=== PATIENT | female | born 1995 | race Caucasian/White ===

== ENCOUNTER 2022-01-17 12:19 | Outpatient (CLI) | payer OTHER, SELFPAY ==
--- NOTE | 2022-01-17 13:00 | CRLHL7_ITS ---
For Patients: As a result of the Cures Act, medical imaging exams and procedure reports are released immediately into your electronic medical record. You may view this report before your referring provider. If you have questions, please contact your health care provider. INDICATION: First trimester scan, establish dates. COMPARISON: None. TECHNIQUE: Real-time singletary-scale imaging of the pelvis was performed. FINDINGS: Sonographic imaging demonstrates a single living intrauterine gestation. The embryo demonstrates a regular cardiac rate measuring 163 beats per minute. The embryo`s crown-rump length measurement of 2.0 cm corresponds to a gestational age of 8 weeks 4 days with a sonographic due date of August 25, 2022. There is a normal-appearing yolk sac measuring 3.4 mm. There are no gross abnormalities noted within the embryo at this early state of development. The placenta has not yet developed. The gestational sac has a normal appearance and there is no evidence of a perigestational hemorrhage. The amount of fluid within the sac appears appropriate for gestational age. The cervix is closed. The myometrium appears normal. The ovaries are of normal size. The right ovary measures 3.9 x 3.2 x 2.5 cm and contains small corpus luteum cyst of . The left ovary measures 2.4 x 2.0 x 2.0 cm. There are no suspicious fluid collections noted in the cul-de-sac. IMPRESSION: Normal first trimester OB ultrasound exam. Gestational age calculated at 8 weeks 4 days with a sonographic due date of August 25, 2022. Dictated by Constantin Scott MD @ 01/17/2022 9:10:03 PM (Electronically Signed)
== END 2022-01-17 12:20 | disposition home or self-care (01) ==
LOC: US 12:21
PROVIDERS: PCP Family Medicine; Visit Provider Physician Assistant
DX: Z34.91 Encounter for supervision of normal pregnancy, unspecified, first trimester (principal); Z3A.08 8 weeks gestation of pregnancy
CPT/HCPCS: 76817

== ENCOUNTER 2022-01-17 14:23 | Outpatient (CLI) | payer OTHER, SELFPAY ==
--- OUTSIDE RECORDS SUMMARY | 2022-01-17 14:33 | XMS_ITS | Clinical Summary ---
:1995 Author Organization [employer] [facility] [place] [address] Care Team Providers Name Role Phone Verónica Pita GUILLERMINA Primary Care Provider Allergies Active Allergy Reactions Severity Noted Date Comments Pimgaecahk-Bexzqqmnhednw-Lgt Other - Describe In 07/30 Jaw locked up f Comment Field Human Papillomavirus Rash 06/13/2008 Vaccine, Quadrivalent Sumatriptan Succinate Other - Describe In 07/30/2016 Inefective Comment Field Medications Medication Sig Dispensed Refills Start Date End Date Status methocarbamol (ROBAXIN) Take 1 tablet by 30 tablet 1 9 Active 750 mg mouth every 6 tabletIndications: hours if needed Tension headache for Muscle Spasm. traMADol (ULTRAM) 50 mg Take 1 tablet by 30 tablet 0 9 Active tabletIndications: mouth every 6 Tension headache hours if needed for Pain. norgestimate-ethinyl Take 1 tablet by 28 tablet 0 10/19/2019 Active estradioL (TRINESSA) mouth once 0.18/0.215/0.25 mg-35 daily. 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 Overview: 05/2017 LSIL Age 21 05/2018- LSIL, HPV + plan: repeat Pap in 1 year Migraine without aura and without status migrainosus, not intractable 02/16/2017 Tension headache 02/16/2017 Myopia 05/18/2012 Acne 09/19/2009 Menorrhagia 09/19/2009 Resolved Problems Problem Noted Date Resolved Date Hypertrophy of tonsils and adenoids 09/22/201202/07 Immunizations Name Administration Dates Next Due AMB Influenza, IIV3 (Age >=3 12/05/2011, 12/20/2010, 010, years)(Flu Clinic Only) 01/03/2009, 12/28/2007 AMB Influenza, IIV4 PF (=>6 mos 12/07/2016, 01/04/2016, 11/08 Flulaval,Fluzone Fluarix)(Flu Clinic Only) DTaP 08/05/2000, 02/01/1997, 02/09/1996, 1995, 1995 HIB PRP-OMP (PedvaxHIB) 11/09/1996, 02/09/1996, 1995, 1995 Hepatitis B, Unspecified 05/03/1996, 1995, 1995 Human Papilloma Virus Vaccine 09/03/2007 Inactivated Polio Vaccine 08/05/2000 Influenza A (H1N1), Inactivated (Age 1202/28/2009 >=3 Years) Influenza, IIV3 (Age >=3 years) 12/16/2017, 12/23/2012, 12/09 Influenza, IIV4 12/13/2014 MMR 08/05/2000, 11/09/1996 Meningococcal Vaccine (Menactra) 11/03/2007 Meningococcal Vaccine (Menveo) 10/14/2013 Oral Polio Vaccine 02/09/1996, 1995, 1995 Tdap 06/01/2018, 09/03/2007 Tuberculin (PPD) 03/13/2018, 12/30/2016, 10/25/2016, 04/08/2014, 02/16/2014 Varicella Vaccine 09/03/2007, 08/03/1996 Family History Medical History Relation Name Comments Asthma Brother Heart Disease Maternal Grandfather Migraines Mother Barbara Good Health Sister Relation Name Status Comments Brother Maternal Grandfather Mother Barbara Alive Sister Social History Tobacco Use Types Packs/Day Years Used Date Never Smoker Smokeless Tobacco: Never Used Tobacco Cessation: Counseling Given: Yes Alcohol Use Standard Drinks/Week Comments Yes 0 (1 standard drink = 0.6 oz pure alcoho l) very rare Alcohol Habits Answer Date Recorded How often do you have a drink containing alcohol? Not asked How many drinks containing alcohol do you have on a typical Not asked day when you are drinking? How often do you have six or more drinks on one occasion? No t asked Comment: very rare 02/10/2017 Sex Assigned at Date Recorded Not on file Obstetrics History Last Filed Vital Signs Vital Sign Reading Time Taken Comments Blood Pressure 124/78 06/01/2018 1:34 PM CDT Pulse 68 06/01/2018 1:34 PM CDT Temperature 36.8 ??C (98.2 ??F) 10/27/2017 3:53 PM CDT Respiratory Rate 12 06/01/2018 1:34 PM CDT Oxygen Saturation 100% 10/27/2017 3:53 PM CDT Inhaled Oxygen Concentration - - Weight 73.2 kg (161 lb 6.4 oz) 06/01/2018 1:34 PM CDT Height 160.7 cm (5' 3.25) 06/01/2018 1:34 PM CDT Body Mass Index 28.37 06/01/2018 1:34 PM CDT Plan of Treatment Health Maintenance Due Date Last Done Comments COVID-19 vaccine series (#1) 02/19/1996 Hepatitis C screening for age 0608/19/2013 18-79 BMI (ht and wt on same day) for 06/02/2019 06/01/2018, 1206/2016, age 18+ 07/30/2016, Additional history exists Depression screening for age 12+ 06/04/2019 06/03/2018, , 06/01/2018, Additional history exists Pap test for age 21-65 06/01/2021 06/01/2018, 06/01/2018, 05/08/2017 Influenza for age 9-49 11/08/2021 12/16/2017, 12/07/2016, 01/04/2016, Additional history exists Tetanus booster 06/01/2028 06/01/2018, 09/03/2007 Tdap Completed 06/01/2018, 09/03/2007 Results Not on filefrom Last 3 Months Insurance Payer Benefit Plan / Subscriber ID Effective Dates Phone Addre ss Type Group [employer] [place] [id number] 2017-Present [address] [employer] [phone] [id number] ([address]) [place] [id number] 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
[2022-01-17 17:14] LABS: Hepatitis B Surface Antigen* Negative (Negative)
[2022-01-17 17:25] LABS: HIV 1/2/P24 Combo Screen* Negative (Negative)
[2022-01-17 17:31] LABS: Hepatitis C Virus Antibody* Negative (Negative)
[2022-01-17 17:52] LABS: Chlamydia DNA Amplified* NOT DETECTED (No Detected); GC DNA Amplified* NOT DETECTED (No Detected)
[2022-01-20 04:26] LABS: Rapid Plasma Reagin (RPR) Non Reactive (Non Reactive)
[2022-01-20 14:11] LABS: Rubella Antibody IgG 15.3 IU/mL; Varicella-Zoster Virus Ab, IgG 35.9 IV
== END 2022-01-17 14:24 | disposition home or self-care (01) ==
PROVIDERS: PCP Family Medicine; Visit Provider Physician Assistant
DX: Z34.91 Encounter for supervision of normal pregnancy, unspecified, first trimester (principal); Z12.4 Encounter for screening for malignant neoplasm of cervix; Z3A.08 8 weeks gestation of pregnancy
CPT/HCPCS: 86592; 86703; 86762; 86787; 86803; 86850; 86900; 86901; 87086; 87340; 87491; 87591; 87624; 88175

== ENCOUNTER 2022-04-17 12:23 | Outpatient (CLI) | payer OTHER, SELFPAY | END 2022-04-17 12:24 | disposition home or self-care (01) | PROVIDERS: PCP Family Medicine; Visit Provider Pediatrics Neonatal-Perinatal Medicine | DX: Z34.92 Encounter for supervision of normal pregnancy, unspecified, second trimester (principal); Z3A.21 21 weeks gestation of pregnancy; Z82.79 Family history of other congenital malformations, deformations and chromosomal abnormalities | CPT/HCPCS: 76811 ==

== ENCOUNTER 2022-06-03 10:00 | Outpatient (CLI) | payer OTHER, SELFPAY | END 2022-06-03 10:01 | disposition home or self-care (01) | LOC: NFLDREF 06-05 02:37 | PROVIDERS: PCP Family Medicine; Referring Provider Family Medicine; Visit Provider Obstetrics & Gynecology | DX: Z34.92 Encounter for supervision of normal pregnancy, unspecified, second trimester (principal); Z3A.27 27 weeks gestation of pregnancy | CPT/HCPCS: 86592 ==

== ENCOUNTER 2022-06-17 13:56 | Outpatient (CLI) | payer OTHER, SELFPAY | END 2022-06-17 13:57 | disposition home or self-care (01) | PROVIDERS: PCP Family Medicine; Visit Provider Obstetrics & Gynecology | DX: O13.3 Gestational [pregnancy-induced] hypertension without significant proteinuria, third trimester (principal); Z3A.29 29 weeks gestation of pregnancy | CPT/HCPCS: 82565; 82570; 84156; 84450; 84460; 84520 ==

== ENCOUNTER 2022-06-19 15:33 | Outpatient (CLI) | payer OTHER, SELFPAY | END 2022-06-19 15:34 | disposition home or self-care (01) | LOC: NFLDREF 06-21 12:11 | PROVIDERS: PCP Family Medicine; Referring Provider Family Medicine; Visit Provider Obstetrics & Gynecology | DX: O13.9 Gestational [pregnancy-induced] hypertension without significant proteinuria, unspecified trimester (principal) | CPT/HCPCS: 82570; 84156 ==

== ENCOUNTER 2022-06-28 08:55 | Outpatient (CLI) | payer OTHER, SELFPAY | END 2022-06-28 08:56 | disposition home or self-care (01) | PROVIDERS: PCP Family Medicine; Visit Provider Obstetrics & Gynecology | DX: O13.3 Gestational [pregnancy-induced] hypertension without significant proteinuria, third trimester (principal); Z3A.31 31 weeks gestation of pregnancy | CPT/HCPCS: 82565; 82570; 84156; 84450; 84460; 84520 ==

== ENCOUNTER 2022-07-02 08:21 | Outpatient (CLI) | payer OTHER, SELFPAY ==
--- NOTE | 2022-07-02 08:45 | CRLHL7_ITS ---
For Patients: As a result of the Century Cures Act, medical imaging exams and procedure reports are released immediately into your electronic medical record. You may view this report before your referring provider. If you have questions, please contact your health care provider. INDICATION: female. Gestational hypertension. Evaluate well-being. TECHNIQUE: Transabdominal obstetrical ultrasound. FINDINGS: Single living intrauterine in vertex presentation. Posterior placenta. heart rate 141 beats per minute. Normal amniotic fluid. Single deepest pocket measurement 4.7 cm. Biophysical profile score 6/8 with 2 points given each for gross body movements, tone, and amniotic fluid. Respiratory activity was not observed during the timed course of the study. Biparietal Diameter: 7.91 cm, 35 weeks 5 days, 37th percentile. Head Circumference: 29.22 cm, 32 weeks 2 days, 22nd percentile. Abdominal Circumference: 27.36 cm, 31 weeks 3 days, 35th percentile. Femur Length: 6 cm, 31 weeks 3 days, 24th percentile. Composite calculated ultrasound age 31 weeks 5 days with a sonographic due date of 08/29/2022. Estimated weight 1783g which lies at the 28th percentile. The head to abdominal circumference ratio is normal at 1.07 (0.96-1.15). IMPRESSION: 1. Single living intrauterine in vertex presentation. heart rate 141 beats per minute. 2. Biophysical profile score 6/8. 3. Composite calculated ultrasound age 31 weeks 5 days with a sonographic due date of 08/29/2022. Dictated by Constantin Scott MD @ 07/02/2022 12:03:46 PM (Electronically Signed)
== END 2022-07-02 08:22 | disposition home or self-care (01) ==
PROVIDERS: PCP Family Medicine; Visit Provider Obstetrics & Gynecology
DX: O13.3 Gestational [pregnancy-induced] hypertension without significant proteinuria, third trimester (principal)
CPT/HCPCS: 76816; 76819

== ENCOUNTER 2022-07-05 08:36 | Outpatient (CLI) | payer OTHER, SELFPAY | END 2022-07-05 08:37 | disposition home or self-care (01) | LOC: NFLDREF 22:03 | PROVIDERS: PCP Family Medicine; Referring Provider Family Medicine; Visit Provider Obstetrics & Gynecology | DX: O13.3 Gestational [pregnancy-induced] hypertension without significant proteinuria, third trimester (principal); Z3A.32 32 weeks gestation of pregnancy | CPT/HCPCS: 82565; 82570; 84156; 84450; 84460; 84520 ==

== ENCOUNTER 2022-07-05 09:59 | Outpatient (CLI) | payer OTHER, SELFPAY ==
[2022-07-05 10:18] VITALS: BP 133/87; PULSE 73; RESP 16; TEMP 36.8
[2022-07-05 10:25] VITALS: PULSE 83; O2SAT 97
[2022-07-05 10:50] LABS: Appearance Urine Clear (Clear); Bilirubin Urine Negative (Negative); Blood Urine Negative (Negative); Color Urine Yellow (Yellow); Glucose Urine Negative (Negative); Ketones Urine Negative (Negative); Leukocyte Esterase Urine Negative (Negative); Nitrite Urine Negative (Negative); Protein Urine Negative (Negative); Urobilinogen Urine 0.2 (0.2-1.0)
[2022-07-05 10:57] LABS: Clue Cells No Clue Cells Seen (None Seen); Trichomonas No Trichomonas Seen (None Seen); Yeast No Yeast Seen (None Seen)
[2022-07-05 11:16] LABS: Fetal Fibronectin* Negative (Negative)
--- NOTE | 2022-07-05 11:41 | CRLHL7_ITS ---
For Patients: As a result of the Cures Act, medical imaging exams and procedure reports are released immediately into your electronic medical record. You may view this report before your referring provider. If you have questions, please contact your health care provider. Indication: History of labor Technique: Sonography was performed limited only that which is discussed below Comparison: No prior study specifically studding the cervix Findings: Cervical length is measured at 3.4 to 3.6 centimeters. There is no change of the length with or without fundal pressure. The os is closed and there is no funneling. Impression: Cervical measurements as above Dictated by Luis E Williamson MD @ 07/05/2022 12:56:39 PM (Electronically Signed)
--- NOTE | 2022-07-05 13:09 | PC.OBNST ---
NST Note NST Note Start: 07/05/22 10:14 Freq: ONCE Status: Active Protocol: Document 07/05/22 13:07 NOELLE (Rec: 07/05/22 13:09 NOELLE [id number]) NST Note 1 Para (# of births) 0 EDC 08/28/22 Gestational Age In Weeks & Days 32 Weeks & 2 Days High Risk Factors High Blood Pressure - Gestational Patient Presented with Complaint(s) of Contractions/cramping Other Complaints Pt. sent to OB from [facility] with concerns that pt. was having frequent UC activity on EFM/ NST. Sent for more observation. UA clear, wet prep clear, FFN negative, and Transvaginal US 3cm long in length and closed. Reactive Yes Appropriate for Gestational Age Yes NANCY Gaines Date 07/05/22 Reactive Yes Appropriate for Gestational Age Yes NANCY Severino RN Date 07/05/22 OB NST charge Yes Complete NST Note via Write Note Yes The provider's electronic signature indicates the NST is reactive/appropriate for gestational age. *Note to provider: If an addendum is required, open the patient's chart and click on the note under the Nurse/Allied Health tab.
== END 2022-07-05 12:55 | disposition home or self-care (01) ==
LOC: OB OUT 10:00 → OB 10:01
PROVIDERS: Obstetrics & Gynecology; PCP Family Medicine; Visit Provider Obstetrics & Gynecology
DX: O13.3 Gestational [pregnancy-induced] hypertension without significant proteinuria, third trimester (principal); Z34.93 Encounter for supervision of normal pregnancy, unspecified, third trimester; Z3A.32 32 weeks gestation of pregnancy
CPT/HCPCS: 59025; 76817; 81003; 84112; 87210; 99213

== ENCOUNTER 2022-07-09 13:39 | Outpatient (CLI) | payer OTHER, SELFPAY ==
--- NOTE | 2022-07-09 14:00 | CRLHL7_ITS ---
For Patients: As a result of the Century Cures Act, medical imaging exams and procedure reports are released immediately into your electronic medical record. You may view this report before your referring provider. If you have questions, please contact your health care provider. INDICATION: Gestational HTN COMPARISON: 07/05/2022 TECHNIQUE: Real time singletary scale imaging of the fetus was performed. Without non-stress testing. FINDINGS: Sonographic imaging demonstrates a single living intrauterine gestation. Fetus demonstrates a regular cardiac rate of 144 beats per minute. Fetus has a vertex position. The amniotic fluid volume appears normal and there is a single deepest pocket measurement of 5.9 cm. The fetus was active. Absent breathing movements. There was normal flexion and extension of the trunk and extremities. IMPRESSION: Biophysical profile 08/15. Dictated by Sagar Ramirez MD @ 07/09/2022 3:50:44 PM (Electronically Signed)
== END 2022-07-09 13:40 | disposition home or self-care (01) ==
LOC: US 13:40
PROVIDERS: PCP Family Medicine; Visit Provider Obstetrics & Gynecology
DX: O13.9 Gestational [pregnancy-induced] hypertension without significant proteinuria, unspecified trimester (principal)
CPT/HCPCS: 76819

== ENCOUNTER 2022-07-12 10:00 | Outpatient (CLI) | payer OTHER, SELFPAY | END 2022-07-12 10:01 | disposition home or self-care (01) | LOC: NFLDREF 07-15 16:15 | PROVIDERS: PCP Family Medicine; Referring Provider Family Medicine; Visit Provider Obstetrics & Gynecology | DX: O13.3 Gestational [pregnancy-induced] hypertension without significant proteinuria, third trimester (principal); Z3A.33 33 weeks gestation of pregnancy | CPT/HCPCS: 82565; 82570; 84156; 84450; 84460; 84520 ==

== ENCOUNTER 2022-11-17 18:01 | Emergency (ER) | payer OTHER, SELFPAY ==
[2022-11-17 18:13] VITALS: BP 113/76; PULSE 82; RESP 16; TEMP 36.6; O2SAT 99; BMI 31.8
--- NOTE | 2022-11-17 18:17 | CRLHL7_ITS ---
For Patients: As a result of the Century Cures Act, medical imaging exams and procedure reports are released immediately into your electronic medical record. You may view this report before your referring provider. If you have questions, please contact your health care provider. Indication: Trauma. Technique: Right foot, 3 views. Comparison: None. Findings/Impression: Bones: Acute mildly displaced fracture of the 5th metatarsal base. Joint spaces: Unremarkable. Soft tissues: Unremarkable. Dictated by Kody Brown MD @ 11/17/2022 7:27:13 PM (Electronically Signed)
--- NOTE | 2022-11-17 18:21 | ED_ITS ---
HPI - Extremity Injury (Lower) General Time Seen by Provider: 18:21 Date Seen: 11/17/22 Chief Complaint: Extremity Pain/Injury, Lower Stated Complaint: R foot injury-fell Time Seen by Provider: 11/17/22 18:17 Source: patient and RN notes reviewed Mode of arrival: ambulatory Limitations: no limitations History of Present Illness HPI Narrative: This 27-year-old female is having pain along her right lateral foot. She was caring her walking. Somehow stepped wrong, felt a pop in her foot. She has swelling and bruising, last took ibuprofen around 11:00 a.m. this morning. There is swelling and bruising, it hurts to walk on. She can walk if she just walks on her heel. 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 MD complaint: foot injury Related Data Previous Rx's Medication Instructions Recorded ibuprofen 600 mg tablet 600 mg PO Q6H PRN #30 tabs 08/06/22 Allergies Allergy/AdvReac Type Severity Reaction Status Date / Time human papillomavirus Allergy Severe Arm Went Verified 08/20/22 17:33 vaccine, quadr Black sumatriptan [From Imitrex] Allergy Intermediate Verified 08/20/22 17:33 Review of Systems Narrative: As per HPI. PFSH PFS Medical History Pre-eclampsia affecting puerperium ?O14.95 - Unspecified pre-eclampsia, complicating the puerperium (ICD-10) (normal spontaneous vaginal delivery) ?O80 - Encounter for full-term uncomplicated delivery (ICD-10) Gestational hypertension ?O13.9 - Gestational [-induced] hypertension without significant proteinuria, unspecified trimester (ICD-10) Migraine with aura ?G43.109 - Migraine with aura, not intractable, without status migrainosus (ICD-10) History of menorrhagia ?Z87.42 - Personal history of other diseases of the female genital tract (ICD-10) History of abnormal cervical Papanicolaou smear (05/08/17) ?Z87.42 - Personal history of other diseases of the female genital tract (ICD-10) Surgical History History of wisdom tooth extraction ?K08.409 - Partial loss of teeth, unspecified cause, unspecified class (ICD- 10) History of tonsillectomy (10/08/12) ?Z90.89 - Acquired absence of other organs (ICD-10) Family History Family/Other Coronary artery disease Family/Other Prostate cancer Social History 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 . Nonsmoker. Smoking Status: Never smoker How often do you have a drink containing alcohol: 2-4 times a month How many standard drinks containing alcohol do you have on a typical day: 1 or 2 AUDIT-C Alcohol total score: 2 Non-prescribed substance use: denies use Little interest or pleasure in doing things: not at all Feeling down, depressed, or hopeless: not at all Exam Const: Vital Signs, click to edit/add: Vital Signs - 24 hr 11/17/22 18:13 Temperature 97.8 F Pulse Rate [Left P ulse Oximeter] 82 Respiratory Rate 16 Blood Pressure [Ri ght Upper Arm] 113/76 Pulse Oximetry 99 Oxygen Delivery Me thod Room Air Odalys is a very danie 27-year-old female. She has obvious bruising and swelling over the lateral to mid foot. She is point tender over the proximal 5th metatarsal. There is no swelling into the ankle joint, malleoli are nontend er. She has a good dorsalis pedis pulse. Normal cap refill of the toes and normal sensation. Documenting provider has reviewed patient's vital signs: yes Course Course ED Course: There is obviously concern for fracture of her 5th metatarsal. We will obtain x-ray images. I have reviewed with her that even if the x-ray images do not show a definitive fracture, I a.m. going to recommend immobilization with a cam boot in orthopedic follow-up. The mechanism in her current area of bruising and tenderness certainly make me concerned for underlying fracture. Reevaluation(s) Time of Reevaluation #1: 19:36 Reevaluation #1: Patient has seen her images, is aware that there is fracture at the base of the right 5th metatarsal. Reviewed with her my discussion with Orthopedics. She has a cam walker on already, crutches are in the room. I have given a script for a knee scooter. Consultations Consultation #1: Have spoken with Janis in Orthopedics. She has reviewed the images. She recommends nonweightbearing, can give her script for a knee scooter, crutches in the meantime. She should be able to work as long as she can maintain nonweightbearing on this side and until further advised by Orthopedics. Time: 19:03 Vital Signs Vital signs: Initial Vital Signs Temperature 97.8 F 11/17/22 18:13 Temperature Source Temporal Artery Scan 11/17/22 18:13 Pulse Rate 82 11/17/22 18:13 Pulse Rhythm Regular 11/17/22 18:13 Respiratory Rate 16 11/17/22 18:13 Blood Pressure 113/76 11/17/22 18:13 Blood Pressure Mean 88 11/17/22 18:13 Blood Pressure Position Sitting 11/17/22 18:13 Pulse Oximetry 99 11/17/22 18:13 Oxygen Delivery Method Room Air 11/17/22 18:13 Vital Signs Temperature 97.8 F 11/17/22 18:13 Pulse Rate 82 11/17/22 18:13 Respiratory Rate 16 11/17/22 18:13 Blood Pressure 113/76 11/17/22 18:13 Pulse Oximetry 99 11/17/22 18:13 Oxygen Delivery Method Room Air 11/17/22 18:13 Temperature 97.8 F 11/17/22 18:13 Pulse Rate 82 11/17/22 18:13 Respiratory Rate 16 11/17/22 18:13 Blood Pressure 113/76 11/17/22 18:13 Pulse Oximetry 99 11/17/22 18:13 Oxygen Delivery Method Room Air 11/17/22 18:13 MDM - Extremity Injury (Lower) Imaging Data XR right foot: Attestation: I have reviewed the pertinent imaging results. My impression: I see an acute proximal 5th metatarsal fracture, no significant displacement that I can see in my preliminary review. Radiologist's impression: Patient: ODALYS BARROSO Facility:[facility] Patient ID:?[id number] Site Patient ID:?[id number]. Site :?[id number] Study:?XRay Extremity Right FOOT 3V-11/17/2022 6:40:59 PM Ordering Physician:Connor Collado Final Report: Indication: Trauma. Technique: Right foot, 3 views. Comparison: None. Findings/Impression: Bones: Acute mildly displaced fracture of the 5th metatarsal base. Joint spaces: Unremarkable. Soft tissues: Unremarkable. Dictated by Kody Brown MD @ 11/17/2022 7:27:13 PM (Electronic Signature) Discharge Plan Discharge Clinical Impression: Fracture of fifth metatarsal bone of right foot Qualifiers: Encounter type: initial encounter Fracture type: closed Patient Disposition: Home, Self-Care Condition: Stable Instructions: Foot Fracture in Adults (ED) Additional Instructions: Need to use cam boot for immobilization, crutches or knee scooter for nonweightbearing until further advised by Orthopedics. Ice, elevate to decrease pain and swelling. Can use Tylenol and ibuprofen per bottle directions as needed for pain management. Need to follow up with Orthopedics, if you do not hear from them tomorrow, call [phone] to get scheduled. Activity Level: No Weight Bearing Prescriptions: No Action ibuprofen 600 mg Tablet 600 mg PO Q6H PRNQty: 30 0RF Follow Up/Referrals: Sagar Ruelas MD [Primary Care Provider] - Stand Alone [facility] Inst[facility]
[2022-11-17 19:49] VITALS: BP 121/70; PULSE 79; RESP 16; TEMP 36.6; O2SAT 99
== END 2022-11-17 19:43 | disposition home or self-care (01) ==
PROVIDERS: Emergency Provider Family Medicine; PCP Family Medicine
DX: S92.351A Displaced fracture of fifth metatarsal bone, right foot, initial encounter for closed fracture (principal); Y93.01 Activity, walking, marching and hiking
CPT/HCPCS: 29505; 73630; 99283

== ENCOUNTER 2024-01-07 11:11 | Outpatient (CLI) | payer OTHER, SELFPAY ==
--- OUTSIDE RECORDS SUMMARY | 2024-01-07 15:24 | XMS_ITS | Clinical Summary ---
Author Organization [employer] [facility] Address [place], [place] [address] Care Team Providers Care Photolithographic Stripper Name Role Phone Pita Sanches NP Primary Care Provider Allergies Active Allergy Reactions Criticality Noted Date Comments Ugkepwwuxc-Ikhqwwjptnhdb-T aff Other - Describe In Comment Field 07/30/2016 Jaw locked up Human Papillomavirus Vaccine, Quadrivalent Rash 06/13/2008 Sumatriptan Succinate Other - Describe I n Comment Field 07/30/2016 Inefective Medications Medication Sig Dispensed Refills Start Date End Date Status methocarbamol (ROBAXIN) 750 mg tabletIndications:[place] headache Take 1 tablet by mouth every 6 hours if needed for Muscle Spasm. 30 tablet 1 06/01/2018 Active traMADol (ULTRAM) 50 mg tabletIndications:[place] headache Take 1 tablet by mouth every 6 hours if needed for Pain. 30 tablet 06/04/2018 Active norgestimate-ethinyl estradioL (TRINESSA) 0.18/0.215/0.25 mg-35 mcg (28) tabletIndications:Men orrhagia with irregular cycle Take 1 tablet by mouth once daily. 28 tablet 10/19/2019 Active Active Problems Problem Noted Date Diagnosed Date Controlled substance agreement signed 06/01/2018 Overview (06/01/2018): Tramadol for headaches #30 per year Low grade squamous intraepit helial lesion (LGSIL) on Papanicolaou smear of cervix 05/08/2017 Overview (06/09/2018): 05/2017 LSIL Age 21 05/2018- LSIL, HPV + plan: repeat Pap in 1 year Migraine without aura and wi thout status migrainosus, not intractable 02/16/2017 Tension headache 02/16/2017 Myopia 05/18/2012 Acne 09/19/2009 Menorrhagia 09/19/2009 Resolved Problems Problem Noted Date Diagnosed Date Resolved Date Hypertrophy of tonsils and adenoids 09/22/2012 02/16/2017 Immunizations Name Administration Dates Next Due AMB Influenza, IIV3 (Age >=3 years)(Flu Clinic Only) 12/05/2011,12/20/2010,12/25/2009,01/03,12/28/2007 AMB Influenza, IIV4 PF (=>6 mos Flulaval,Fluzone Fluarix)(Flu Clinic Only) 12/07/2016,01/04/2016,11/22/2013 DTaP 08/05/2000, 7,02/09/1996,12/14,1995 HIB PRP-OMP (PedvaxHIB) 11/09/1996,02/08,1995,10/14 Hepatitis B, Unspecified 05/03/1996,1995,0 1995 Human Papilloma Virus Vaccine 09/03/2007 Inactivated Polio Vaccine 08/05/2000 Influenza A (H1N1), Inactiva yesica (Age >=3 Years) 02/28/2009 Influenza, IIV3 (Age >=3 years) 12/16/2017,12/23,12/29/2006 Influenza, IIV4 12/13/2014 MENINGOCOCCAL VACCINE 2 VIAL 2MO-55YO (MENVEO) 10/14/2013 MMR 08/05/2000,11/09/1996 Meningococcal Vaccine (Menactra) 11/03/2007 Oral Polio Vaccine 02/09/1996,1995, 996 Tdap 06/01/2018,09/03/2007 Tuberculin (PPD) 03/13/2018, 7,10/25/2016,04/08,02/16/2014 Varicella Vaccine 09/03/2007,08/03/1996 Family History Medical History Relation Name Comments Asthma Brother Heart Disease Maternal Grandfather Migraines Mother Barbara Good Health Sister Relation Name Status Comments Brother Maternal Grandfather Mother Barbara Alive Sister Social History Tobacco Use Types Packs/Day Years Used Date Smoking Tobacco: Never Smokeless Tobacco: Never Tobacco Cessation:Counseling Given: Yes Alcohol Use Standard Drinks/Week Comments Yes 0 (1 standard drink = 0.6 oz pur e alcohol) very rare PHQ-2 Answer Date Recorded PHQ-2 Score 0 06/01/2018 Sex and Gender Information Value Date Recorded Sex Assigned at Not on file Gender Identity Not on file Sexual Orientation Not on file Obstetrics History Last Filed Vital Signs Vital Sign Reading Time Taken Comments Blood Pressure 124/78 06/01/2018 1:34 PM CDT Pulse 68 06/01/2018 1:34 PM CDT Temperature 36.8 ??C (98.2 ??F) 10/27/2017 3:53 PM CD T Respiratory Rate 12 06/01/2018 1:34 PM CDT Oxygen Saturation 100% 10/27/2017 3:53 PM CDT Inhaled Oxygen Concentration - - Weight 73.2 kg (161 lb 6.4 oz) 06/01/2018 1:34 P M CDT Height 160.7 cm (5' 3.25) 06/01/2018 1:34 PM CD T Body Mass Index 28.37 06/01/2018 1:34 PM CDT Plan of Treatment Health Maintenance Due Date Last Done Comments HIV for age 15-65 08/19/2010 Hepatitis C screening for age 18-79 08/19/2013 BMI (ht and wt on same day) for age 18+ 06/02/2019 06/01/2018, 02/10/2017, 07/30/2016, Additional history exists Depression screening for age 12+ 06/04/2019 06/03/2018, 06/01/2018, 06/01/2018, Additional history exists COVID-19 vaccine series (2023- season) 2023 Influenza for age 9-49 11/09/2023 8, 12/07/2016, 01/04/2016, Additional history exists Pap test for age 21-65 01/17/2025 2, 01/17/2022, 06/01/2018, Additional history exists Tetanus booster 06/01/2028 06/01/2018, 09/03/2007 Tdap Completed 06/01/2018, 09/03/2007 Pneumococcal series for age 6-64 Aged Out No longer eligible based on patient's age to complete this topic Procedures Procedure Name Priority Date/Time Associated Diagnosis Comments HPV HIGH RISK Routine 01/17/2022 2:58 PM [employer] from Last 3 Months or Most Recently Relevant to Health Maintenance Results * HPV HIGH RISK (01/17/2022 2:58 PM [employer]) TYPE 16 Negative Negative 01/22/2022 5:09 PM [employer] [facility] TYPE 18 Negative Negative 01/22/2022 5:09 PM [employer] [facility] OTHER HIGH RISK TYPES Negative Negative 01/22/2022 5:09 PM [employer] [facility] Other (Cervical/Vagina l) 01/17/2022 2:58 PM [employer] 01/21/2022 1:42 PM [employer] Narrative [facility] - 01/22/2022 5:09 PM [employer] HPV types 16, 18, 31, 33, 35, 39, 45, 51, 52, 56, 58, 59, 66 and 68 DNA were undetectable or below the pre-set threshold. Methodology: Mario Bubba 4800 HPV Test June Dianna PANDYA [employer] [facility] [address] [place] [address], from Last 3 Months or Most Recently Relevant to Health Maintenance Care Teams Photolithographic Stripper Relationship Specialty Start Date End Date Pita Sanches NP [address] [place] [address] BO MARIE [id number] PCP - General Family Practice 06/01/18
== END 2024-01-07 11:12 | disposition home or self-care (01) ==
PROVIDERS: PCP Family Medicine; Referring Provider Family Medicine; Visit Provider Family Medicine
DX: E66.9 Obesity, unspecified (principal); Z13.228 Encounter for screening for other metabolic disorders
CPT/HCPCS: 80048

== ENCOUNTER 2024-07-19 13:32 | Outpatient (CLI) | payer OTHER, SELFPAY ==
--- NOTE | 2024-07-19 14:00 | CRLHL7_ITS ---
For Patients: As a result of the Cures Act, medical imaging exams and procedure reports are released immediately into your electronic medical record. You may view this report before your referring provider. If you have questions, please contact your health care provider. OB ULTRASOUND INDICATION: Dating and viability. TECHNIQUE: Real time grayscale imaging of the fetus was performed. Transvaginal imaging performed to better visualize the endometrium and ovaries. LMP: 05/22/2024. RODRIGO by LMP: 02/26/2025. GA: 8 w, 2 d. Previous US: No. CRL: 2.1 cm. 8 w 5 d. RODRIGO: 02/23/2025. FHR: 180 BPM. Gestational sac: 3.6 cm. Appears within normal limits. Yolk sac: 3.7 mm. Appears within normal limits. Right ovary: 2.7 x 1.1 x 1.4 cm. Left ovary: 3.8 x 2.6 x 2.0 cm. CL. IMPRESSION: Single living intrauterine measuring 8 weeks 5 days and sonographic due date 02/23/2025. Sagar Ramirez M.D. Diagnostic Radiologist [email or web address] MARTIN/lisset darling/Dictated by: Sagar Ramirez MD @ 07/20/2024 6:09:00 AM (Electronically Signed)
== END 2024-07-19 13:33 | disposition home or self-care (01) ==
LOC: US 13:33
PROVIDERS: PCP Family Medicine; Visit Provider Physician Assistant
DX: Z34.91 Encounter for supervision of normal pregnancy, unspecified, first trimester (principal); Z3A.08 8 weeks gestation of pregnancy
CPT/HCPCS: 76817

== ENCOUNTER 2024-07-19 14:46 | Outpatient (CLI) | payer OTHER, SELFPAY ==
[2024-07-19 22:08] LABS: Chlamydia DNA Amplified* NOT DETECTED (No Detected); GC DNA Amplified* NOT DETECTED (No Detected)
== END 2024-07-19 14:47 | disposition home or self-care (01) ==
PROVIDERS: PCP Family Medicine; Visit Provider Physician Assistant
DX: O09.291 Supervision of pregnancy with other poor reproductive or obstetric history, first trimester (principal); Z3A.08 8 weeks gestation of pregnancy
CPT/HCPCS: 82565; 82570; 83020; 83021; 84156; 84450; 84460; 84520; 85660; 86592; 86703; 86704; 86706; 86762; 86787; 86803; 86850; 87086; 87340; 87491; 87591

== ENCOUNTER 2024-07-28 07:00 | Outpatient (CLI) | payer OTHER, SELFPAY | END 2024-07-28 07:01 | disposition home or self-care (01) | LOC: NFLDREF 08-04 03:27 | PROVIDERS: PCP Family Medicine; Referring Provider Family Medicine; Visit Provider Physician Assistant | DX: Z34.81 Encounter for supervision of other normal pregnancy, first trimester (principal) | CPT/HCPCS: 82570; 84156 ==

== ENCOUNTER 2024-09-15 10:05 | Outpatient (CLI) | payer OTHER, SELFPAY | END 2024-09-15 10:06 | disposition home or self-care (01) | PROVIDERS: PCP Family Medicine; Visit Provider Obstetrics & Gynecology | DX: Z34.92 Encounter for supervision of normal pregnancy, unspecified, second trimester (principal); Z3A.16 16 weeks gestation of pregnancy | CPT/HCPCS: 84450; 86706 ==

== ENCOUNTER 2024-10-27 12:45 | Outpatient (CLI) | payer OTHER, SELFPAY | END 2024-10-27 12:46 | disposition home or self-care (01) | PROVIDERS: PCP Family Medicine; Visit Provider Obstetrics & Gynecology | DX: O26.892 Other specified pregnancy related conditions, second trimester (principal); R51.9 Headache, unspecified; H53.9 Unspecified visual disturbance; Z3A.22 22 weeks gestation of pregnancy | CPT/HCPCS: 82565; 82570; 84156; 84450; 84460; 84520; 84550 ==

== ENCOUNTER 2024-10-27 14:12 | Emergency (ER) | payer OTHER, SELFPAY ==
--- OUTSIDE RECORDS SUMMARY | 2024-10-06 08:52 | XMS_ITS | Encounter Summary ---
Author Organization [employer] Address [address] [place] [id number] Care Team Providers Care Service Counselor Name Role Phone No Ref-Primary, Physician Primary Care Provider Reason for Referral * Diagnostic Imaging Ultrasound (Routine) - Pending Review Specialty Diagnoses / Procedures Referred By Liss jimenez Referred To Contact Radiology. Diagnoses related condition, antepartum Procedures [facility] US Comprehensive Single Ralf Marinelli MD [facility] [address] [place] [address] Phone: tel: fax: Referral ID Status Reason Start Date Expiration Date V isits Requested Visits Authorized [id number] Pending Review 08/23/2024 08/23/2025 1 1 Reason for Visit * Diagnostic Imaging Ultrasound (Routine) - Pending Review Specialty Diagnoses / Procedures Referred By Liss jimenez Referred To Contact Radiology. Diagnoses related condition, antepartum Procedures [facility] US Comprehensive Single Ralf Marinelli MD [facility] [address] [place] [address] Phone: tel: fax: Referral ID Status Reason Start Date Expiration Date V isits Requested Visits Authorized [id number] Pending Review 08/23/2024 08/23/2025 1 1 Encounter Details Date Type Department Care Team (Latest Contact Info) Description 10/06/2024 8:52 AM CDT - 10/06/2024 11:59 PM CDT Hospital Encounter [facility] [place] [address] [place] [address] Melany Portillo MD [address] [place], [place] [address]E [facility] [address] [place] [address] related condition, antepartum Discharge Disposition: Home or Self Care Social History Tobacco Use Types Packs/Day Years Used Date Smoking Tobacco: Never Assessed Estimated Date of Delivery Comme nts Yes 02/26/2025 Based on last me nstrual period of 05/22/2024 Sex and Gender Information Value Date Recorded Sex Assigned at Not on file Legal Sex Female 10:10 AM CDT Gender Identity Not on file Sexual Orientation Not on file documented as of this encounter Plan of Treatment Not on file documented as of this encounter Procedures Procedure Name Priority Date/Time Associated Diagnosis Comments [facility] US COMPREHENSIVE SINGLE Routine 10/06/2024 10:44 AM CDT related condition, antepartum documented in this encounter Results * [facility] US Comprehensive Single (10/06/2024 10:44 AM CDT) Anatomical Region Laterality Modality Ultrasound 10/06/2024 10:0 4 AM CDT Impressions 10/06/2024 10:58 AM CDT IMPRESSION ----- 1. Conn at 19w 4d gestational age by LMP c/w 8 week 5 day US. 2. No anomalies commonly detected by ultrasound were identified in the detailed anatomic survey within the limits of ultrasound. 3. Growth parameters and estimated weight were consistent with gestational age predicted by assigned RODRIGO. 4. The amniotic fluid volume appeared normal. 5. On transabdominal imaging the cervix appeared long and closed. Narrative 10/06/2024 10:58 AM CDT Comprehensive ----- Pat. Name: JOANN MALONEY Study Date: 10/06/2024 10:04am Pat. 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 View: Sufficient ----- Conn . Number of fetuses: 1 DATING ----- Date Details Gest. age RODRIGO LMP 05/22/2024 Cycle: regular cycle 19 w + 4 d 02/26/2025 Previous U/S 07/19/2024 GA, GA 8 w + 5 d 20 w + 0 d 02/23/2025 U/S 10/06/2024 based upon AC, BPD, Femur, HC 19 w + 6 d 02/24/2025 Assigned dating based on the LMP, selected on 10/06/2024 19 w + 4 d 02/26/2025 GENERAL EVALUATION ----- Cardiac activity present. FHR 146 bpm. movements: present. Presentation: cephalic Placenta: posterior, no previa > 2 cm from internal os Umbilical cord: Cord vessels: 3 vessel cord. Insertion site: normal insertion Amniotic fluid: Amount of AF: normal. MVP 5.1 cm BIOMETRY ----- BPD 45.2 mm 19w 5d Hadlock OFD 61.0 mm 19w 5d Nicolaides HC 170.5 mm 19w 5d Hadlock Cerebellum tr 20.0 mm 19w 0d Nicolaides Nuchal fold 4.1 mm AC 149.3 mm 20w 1d 66% Hadlock Femur 31.4 mm 19w 5d Hadlock Humerus 29.9 mm 19w 6d [facility] Weight Calculation: EFW 322 g 66% Hadlock EFW (lb,oz) 0 lb 11 oz EFW by Hadlock ([id number]) Head / Face / Neck Biometry: Director Of [employer] Services 6.5 mm CM 4.5 mm Nasal bone 5.6 mm ANATOMY ----- The following structures appear normal: Head / Neck Cranium. Head size. Head shape. Lateral ventricles. Choroid plexus. Midline falx. Cavum septi pellucidi. Cerebellum. Cisterna magna. Parenchyma. Thalami. Vermis. Neck. Nuchal fold. Face Lips. Profile. Nose. Maxilla. Mandible. Orbits. Lens. Heart / Thorax 4-chamber view. RVOT view. LVOT view. 3-vessel view. 7-ldoxza-msoqdor view. Situs. Aortic arch view. Bicaval view. Ductal arch view. Superior vena cava. Inferior vena cava. Cardiac position. Cardiac size. Cardiac rhythm. Right lung. Left lung. Diaphragm. Abdomen Abdom. wall. Cord insertion. Stomach. Kidneys. Bladder. Liver. Bowel. Genitals. Spine Cervical spine. Thoracic spine. Lumbar spine. Sacral spine. Extremities / Skeleton Arms. Right arm. Right hand. Left arm. Left hand. Legs. Right leg. Right foot. Left leg. Left foot. sex: male. MATERNAL STRUCTURES ----- Cervix Visualized Appearance: Appears Closed Approach - Transabdominal: Cervical length 47.9 mm Right Ovary Visualized Left Ovary Visualized RECOMMENDATION ----- Thank-you for referring your patient for a comprehensive ultrasound. I discussed the findings on today's ultrasound with the patient and her partner, who was born with a cleft lip. I reviewed the limitations of ultrasound both in detecting aneuploidy and structural abnormalities. Ultrasound can routinely detect 80-90% of structural abnormalities. She had low risk cell free DNA for genetic screening this . She plans weekly BPPs for her history of a due to preeclampsia. These are anticipated in [place] and we recommend that these start at 32 weeks. Return to primary provider for continued care. If you have questions regarding today's evaluation or if we can be of further service, please contact the [facility]. anomalies may be present but not detected I spent a total of 20 minutes (excluding the ultrasound interpretation) on the date of this encounter including preparing to see the patient (reviewing medical records/tests), in direct qkis-zh-gcwq contact with the patient counseling and discussing the plan of care, documenting the visit in the electronic medical record, and communicating with other health home health aide caregiver and/or care coordination. Procedure Note Melany Portillo MD - 10/06/2024 Comprehensive ----- Pat. Name: JOANN MALONEY Study Date: 10/06/2024 10:04am Pat. NO: [id number] Referring MD: RALF MARINELLI Site: [employer] Patrol Officer: Erinn Bruno RDMS : 1995 Age: 29 ----- INDICATION ----- Family history of cleft lip (FOB) History of preeclampsia in previous METHOD ----- Transabdominal ultrasound examination. View: Sufficient ----- Conn . Number of fetuses: 1 DATING ----- DateDetailsGest. age RODRIGO LMP 05/22/2024ycle: regular cycle19 w + 4 d 02/26/2025 Previous U/S 07/19/2024 GA, GA8 w + 5 d20 w + 0 d 02/23/2025 U/S 10/06/2024ased upon AC, BPD, Femur, HC19 w + 6 d 02/24/2025 Assigned dating based on the LMP, selected on w + 4 d 02/26/2025 GENERAL EVALUATION ----- Cardiac activity present. FHR 146 bpm. movements: present.Presentation: cephalic Placenta: posterior, no previa > 2 cm from internal os Umbilical cord: Cord vessels: 3 vessel cord. Insertion site: normalinsertion Amniotic fluid: Amount of AF: normal. MVP 5.1 cm BIOMETRY ----- BPD 45.2mm 19w 5dHadlock OFD 61.0mm 19w 5dNicolaides HC 170.5mm 19w 5dHadlock Cerebellum tr 20.0mm 19w 0dNicolaides Nuchal fold 4.1mm AC 149.3mm 20w 1d 66%Hadlock Femur 31.4mm 19w 5dHadlock Humerus 29.9mm 19w 6dJeanty Weight Calculation: EFW 322g 66%Hadlock EFW (lb,oz) 0 lb 11oz EFW by Hadlock([id number]) Head / Face / Neck Biometry: Director Of [employer] Services 6.5mm CM 4.5mm Nasal bone 5.6mm ANATOMY ----- The following structures appear normal: Head / Neck Cranium. Head size. Head shape.Lateral ventricles. Choroid plexus. Midline falx. Cavum septi pellucidi.Cerebellum. Cisterna magna. Parenchyma. Thalami. Vermis. Neck. Nuchal fold. Face Lips. Profile. Nose. Maxilla.Mandible. Orbits. Lens. Heart / Thorax 4-chamber view. RVOT view. LVOT view.3-vessel view. 1-hjccvm-tvpjgfx view. Situs. Aortic arch view. Bicavalview. Ductal arch view. Superior vena cava. Inferior vena cava.Cardiac position. Cardiac size. Cardiac rhythm. Right lung. Left lung.Diaphragm. Abdomen Abdom. wall. Cord insertion. Stomach.Kidneys. Bladder. Liver. Bowel. Genitals. Spine Cervical spine. Thoracic spine.Lumbar spine. Sacral spine. Extremities / Skeleton Arms. Right arm. Right hand. Left arm.Left hand. Legs. Right leg. Right foot. Left leg. Left foot. sex: male. MATERNAL STRUCTURES ----- Cervix Visualized Appearance: Appears Closed Approach - Transabdominal:Cervical length 47.9 mm Right Ovary Visualized Left Ovary Visualized RECOMMENDATION ----- Thank-you for referring your patient for a comprehensive ultrasound. I discussed the findings on today's ultrasound with the patient and herpartner, who was born with a cleft lip. I reviewed the limitations ofultrasound both in detecting aneuploidy and structural abnormalities. Ultrasound can routinely [id number]% of structural abnormalities. She had low risk cell free DNAfor genetic screening this . She plans weekly BPPs for her history of a due topreeclampsia. These are anticipated in [place] and we recommend thatthese start at 32 weeks. Return to primary provider for continued care. If you have questions regarding today's evaluation or if we can be offurther service, please contact the [facility]. anomalies may be present but not detected I spent a total of 20 minutes (excluding the ultrasound interpretation) onthe date of this encounter including preparing to see the patient(reviewing medical records/tests), in direct lvgf-ag-yvlu contact with the patient counseling and discussingthe plan of care, documenting the visit in the electronic medical record,and communicating with other health home health aide caregiver and/or care coordination. IMPRESSION ----- 1. Conn at 19w 4d gestational age by LMP c/w 8 week 5 dayUS. 2. No anomalies commonly detected by ultrasound were identified inthe detailed anatomic survey within the limits of prenatalultrasound. 3. Growth parameters and estimated weight were consistent withgestational age predicted by assigned RODRIGO. 4. The amniotic fluid volume appeared normal. 5. On transabdominal imaging the cervix appeared long and closed. Ralf MORRELL [facility] US ORDERABLES Edited Re sult - Final documented in this encounter Visit Diagnoses Diagnosis related condition, antepartum documented in this encounter Care Teams Service Counselor Relationship Specialty Start Date End Date No Ref-Primary, Physician PCP - General 08/23/24 documented as of this encounter
--- OUTSIDE RECORDS SUMMARY | 2024-10-06 09:30 | XMS_ITS | Encounter Summary ---
Author Organization [facility] Address [address] [place] [address] Care Team Providers Care Power And Recovery Superintendent Name Role Phone No Ref-Primary, Physician Primary Care Provider Reason for Visit * Reason Comments Genetic Counseling * Consultation (Routine: Next available opening) - Pending Review Specialty Diagnoses / Procedures Referred By Liss jimenez Referred To Contact Diagnoses related condition, antepartum Rody Wagoner MD [facility] [address] [place] [address] Phone: tel: fax: Referral ID Status Reason Start Date Expiration Date V isits Requested Visits Authorized [id number] Pending Review 08/23/2024 08/23/2025 1 1 Encounter Details Date Type Department Care Team (Late st Contact Info) Description 10/06/2024 9:30 AM CDT Office Visit [facility] [place] [address] [place] [address] Melany Portillo MD [address] [place] [address] Zuleika Velarde GC [address] [place] [address] Family history of cleft lip (Primary Dx); related condition, antepartum Social History Tobacco Use Types Packs/Day Years Used Date Smoking Tobacco: Never Assessed Estimated Date of Delivery Comme nts Yes 02/26/2025 Based on last me nstrual period of 05/22/2024 Sex and Gender Information Value Date Recorded Sex Assigned at Not on file Legal Sex Female 10:10 AM CDT Gender Identity Not on file Sexual Orientation Not on file documented as of this encounter Progress Notes * SydZuleika Doni, GC - 10/06/2024 9:[address] [facility] Genetic Counseling Consult Patient: Joann Maloney Preferred Name: Joann Date of : 1995 Date of Service: 10/06/24 Joann was seen at the [facility] for genetic consultation. The indication for genetic counseling is family history concern. The patient was accompanied to this visit by their , Gabby. The session was conducted in Bulgarian. IMPRESSION/ PLAN 1. Joann had genetic screening earlier in this . Their non-invasive test was screen negative or low risk for screened conditions 2. During today's [facility] visit, Joann had a genetic counseling session only. Screening and diagnostic testing was discussed and declined. 3. Since the patient chose aneuploidy screening via NIPT, quad screen is NOT recommended in the second trimester. If the patient desires screening for open neural tube defects, maternal serum AFP only is recommended, ideally between 16- 18 weeks gestation. 4. Joann had a level II comprehensive anatomy ultrasound today. Please see the ultrasound report for further details. HISTORY /Parity: Joann's history is significant for: Prior history of pre-eclampsia with pre-term delivery CURRENT Current Age: [age] year old Age at Delivery: 29 year old RODRIGO: 02/26/2025, by Last Menstrual Period Gestational Age: 19w4d This is a single gestation. This was conceived spontaneously. MEDICAL HISTORY Joann???s reported medical history is not expected to impact management or risks to development. FAMILY HISTORY A three-generation pedigree was obtained today and is scanned under the Media tab in Every[employer]. The family history was reported by Joann and their partner. The following significant findings were reported today for Joann's family: Maternal first cousin with leukemia diagnosed at 18 Maternal grandfather has a history of heart attacks and stent placement as well as prostate cancer. Joann's partner, Gabby is a 31 year old male. He was born with a unilateral cleft lip that was repaired at . He is otherwise healthy. His mother had a heart attack and had stents placed in her 30s. Maternal grandfather have rheumatoid arthritis and a history of a heart attack Maternal grandmother passed from a stroke. Paternal grandfather passed from metastatic prostate cancer Otherwise, the reported family history is unremarkable for multiple miscarriages, stillbirths, defects, intellectual disabilities, known genetic conditions, and consanguinity. Orofacial Clefting Cleft lip and palate is a relatively common defect, occurring in approximately 1 in 1,000 live births. In the majority of cases, cleft lip and palate occurs as an isolated defect. However, many genetic syndromes and chromosome disorders have been identified which include cleft lip with or without palate.Clefting abnormalities can also be associated with maternal teratogen exposures. About 70 percent of cases of CL/P and 50 percent of CP are nonsyndromic. Both genetic and environmental factors influence the development of orofacial clefts. Fetuses found to have orofacial clefts should undergo careful assessment for additional structural abnormalities, as these defects are notedin 50 percent of newborns with isolated CP, 20 percent of those with CL and CP, and 8 percent for those with isolated CL. Amniocentesis for karyotype is an available option to women with ultrasound findings of orofacial clefts and associated anomalies because of the high rate of chromosomal defects. Orofacial clefts in the absence of associated congenital abnormalities are unlikely to be associated with a chromosomal abnormality; however, the difficulty in sonographic diagnosis of some of the associated malformations supports chromosomal evaluation in all fetuses with prenatally diagnosed facial clefts. 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 Isolated cleft lip and palate is thought to occur as a multi-factorial condition, due to the interaction of multiple genes (polygenic) and environmental factors. Since there is a genetic component to isolated clefting abnormalities, there is an increased risk for other family members to also have a cleft lip with or without cleft palate. The chance for Ingrid to have a child with a cleft is approximately2-4% . We reviewed the benefits and limitation in screening for clefting abnormalities with a comprehensive level II ultrasound. Cancer We discussed how most cancer seen in families occurs sporadically, but about 5- 10% may be due to anunderlying genetic etiology. We discussed that cancer diagnosed under the age of 50 raises suspicion for a potential hereditary cancer syndrome. Other characteristics that may suggest a hereditary cancer syndrome include cancer in 2 or more close relatives on the same side of the family, multiple primary tumors, bilateral or multiple rare cancers, constellations of tumors associated with a specific cancer syndrome, and evidence of autosomal dominant transmission. We discussed that metastatic prostate cancer can be concerning for a hereditary cancer syndrome. Gabby was encouraged to share cancer family history with their health care providers. Even if no hereditary cancer syndrome is identified in a family, individuals may be eligibile for increased screening or risk management options given a family history. Patients may also consider meeting with a cancer genetic counselor. If a family wants more information, they can contact the [facility] Risk Management Program ( ). Physicians can also make referrals at [email or web address], if within the e[employer] system, through [facility] referral for Cancer Risk Mgmt/Cancer Genetic Counseling Heart Disease We reviewed that heart disease is relatively common in the general population. Heart disease is often multifactorial with many possible underlying factors contributing to heart disease. It is unknownif the relative's heart disease could have an underlying genetic predisposition. Gabby David were encouraged to bring up this family history with their primary care physician in order to receive the proper care and screening at appropriate ages. Autoimmune Disorders Autoimmune conditions are often multifactorial disorders, resulting from both genetic and non-genetic factors. Once an autoimmune disease is present in a family, other relatives may be at increased risk to develop the same disease or a different autoimmune disease. Presymptomatic and testing are not available for autoimmune disorders. RISK ASSESSMENT FOR INHERITED CONDITIONS AND CARRIER SCREENING OPTIONS Expanded carrier screening is available to screen for autosomal recessive conditions and X-linked conditions in a large list of genes. Carrier screening does not test the but gives a risk assessment for the and future pregnancies to have the condition. Expanded carrier screeningis designed to identify carrier status for conditions that are primarily childhood or adolescent onset. Expanded carrier screening does not evaluate for adult-onset conditions such as hereditary cancer syndromes, dementia/ Alzheimer's disease, or cardiovascular disease risk factors. Additionally, expanded carrier screening is not comprehensive for all known genetic diseases or inherited conditions. Carrier screening does not test for all genetic and health conditions or risk factors. Autosomal recessive conditions happen when a mutation has been inherited from the egg and sperm andinclude conditions like cystic fibrosis, thalassemia, hearing loss, spinal muscular atrophy, and more. We reviewed that when both biological parents carry a harmful genetic change in a gene associated with autosomal recessive inheritance, each of their pregnancies has a 1 in 4 (25%) chance to be affected by that condition. X-linked conditions happen when a mutation has been inherited from the eggand include conditions like fragile X syndrome.With x-linked conditions, the specific risk generally depends on the chromosomal sex of the fetus, with XY individuals (generally male) being most severely affected. [place] screening was reviewed. About [place] Screening The patient does NOT have a family history of known inherited conditions. This does NOT mean the patient and/or their partner is not a carrier of a condition. Approximately 90% of couples at an increased reproductive risk for an inherited condition have no family history of that condition. The patient had previous carrier screening for 5 conditions through [employer] in 2024 and was not found to be a carrier for any of the screened for condtions. A copy of the report wasavailable for review today. The patient's partner did not complete carrier screening as well. The patient declined the carrier screening options and declined a thorough discussion of the options. They are aware the option will remain, and they can contact us if they would like to pursue screening. See below for the more detailed information we dicussed. RISK ASSESSMENT FOR CHROMOSOME CONDITIONS We explained that the risk for chromosome abnormalities increases with maternal age. We discussed specific features of common chromosome abnormalities, including trisomy 21 (Down syndrome), trisomy 13, trisomy 18, and sex chromosome trisomies. At age 29 at midtrimester, the risk to have a baby with Down syndrome is 1 in 760. At age 29 at midtrimester, the risk to have a baby with any chromosome abnormality is 1 in 380. At age 29 at delivery, the risk to have a baby with Down syndrome is 1 in 1000. At age 29 at delivery, the risk to have a baby with any chromosome abnormality is 1 in 417. Joann had genetic screening earlier in this . Their non-invasive test was screen negative or low risk for screened conditions Non-invasive testing (NIPT) results Maternal plasma cell-free DNA testing Screens for trisomy 21, trisomy 13, trisomy 18, and sex chromosome aneuploidy First trimester ultrasound with nuchal translucency and nasal bone assessment was not performed in this , to our knowledge. Joann had a [place] Aneuploidy test earlier in ; we reviewed the results today, which are low risk. The NIPT did include sex chromosome aneuploidies and the result was low risk. The predicted sex is XY, which is typically male. Given the accuracy of this test, these results greatly decrease the chance for certain chromosome abnormalities We discussed the limitations of normal NIPT results Maternal serum AFP only to screen for open neural tube defects (after 15 weeks) was not performed in this , to our knowledge. GENETIC TESTING OPTIONS Genetic testing during a includes screening and diagnostic procedures. Screening tests are non-invasive which means no risk to the and includes ultrasounds and blood work. The benefits and limitations of screening were reviewed. Screening tests provide a risk assessment (chance) specific to the for certain chromosome abnormalities but cannot definitively diagnose or exclude a chromosome abnormality. Follow-up genetic counseling and consideration of diagnostic testing is recommended with any abnormal screening result. Diagnostic testing during a is more certain and can test for more conditions. However, the tests do have a risk of miscarriage that requires careful consideration. These tests can detect chromosome ab normalities with greater than 99% certainty. Results can be compromised by maternal cell contamination or mosaicism and are limited by the resolution of current genetic testing technology. There is no screening or diagnostic test that detects all forms of defects or intellectual disability. We discussed the following screening options: Non-invasive testing (NIPT) Also called cell-free DNA screening because it detects chromosomes from the placenta in the person's blood Can be done any time after 10 weeks gestation Standard recommendation for NIPT screens for trisomy 21, trisomy 18, trisomy 13, with the option ofadding sex chromosome aneuploidies, without or without predicted sex Cannot screen for open neural tube defects, maternal serum AFP after 15 weeks is recommended New NIPT options include screening for other trisomies, microdeletion syndromes, and in some cases blood antigens. Guidelines do not recommend these conditions are included in standard screening. These options have limitations and should be discussed with a genetic counselor. However, current (2022) ACMG guidelines do recommend that screening for one microdeletion syndrome,called 22q11.2 deletion syndrome be offered to all patients. 22q11.2 deletion syndrome hasan estimated prevalence of 1 in 990 to 1 in 2148 (0.05-0.1%). Risk is not thought to increase with maternal age. Clinical features are variable but include congenital heart defects, cleft palate, developmental delays, immune system deficiencies, and hearing loss. Approximately 90% of cases are de josephine (a sporadic new change in a ). Cell-free DNA screening for 22q11.2 deletion syndrome isavailable with the inclusion of other microdeletion syndromes. There is less data about the performance of cell-free DNA screening for more rare microdeletions and the chance for false positives or negative may be increased. We discussed the limitations of cell-free DNA screening in detecting microdeletions and the possibility of false positives and false negatives. The patient opted into microdeletion syndrome screening. We discussed the following ultrasound options: Comprehensive level II ultrasound ( Anatomy Ultrasound) Ultrasound done between 18-20 weeks gestation Screens for major defects and markers for aneuploidy (like trisomy 21 and trisomy 18) Includes looking at the fetus/baby's growth, heart, organs (stomach, kidneys), placenta, and amniotic fluid We discussed the following diagnostic options: Amniocentesis Invasive diagnostic procedure done after 15 weeks gestation The procedure collects a small sample of amniotic fluid for the purpose of chromosomal testing and/or other genetic testing Diagnostic result; more than 99% sensitivity for chromosome abnormalities Testing for AFP in the amniotic fluid can test for open neural tube defects It was a pleasure to be involved with [facility]. I spent 45 minutes on the date of the encounter doing chart review, obtaining history, test coordination, documentation, and further activitiesas noted above. Zuleika Velarde MS Genetic Counseling Party Demonstrator [email or web address] Office: [phone] [facility]: [phone] Patient seen, evaluated and discussed with the Genetic Counseling Party Demonstrator. I have verified the content of the note, which accurately reflects my assessment of the patient and the plan of care. Supervising Genetic Counselor Stacy Moreno MS, [facility] Licensed Genetic Counselor [facility] Office: [phone] [facility]: [phone] documented in this encounter Plan of Treatment Not on file documented as of this encounter Visit Diagnoses Diagnosis Family history of cleft lip- Primary Family history of congenital anomalies related condition, antepartum documented in this encounter Care Teams Power And Recovery Superintendent Relationship Specialty Start Date End Date No Ref-Primary, Physician PCP - General 08/23/24 documented as of this encounter
--- OUTSIDE RECORDS SUMMARY | 2024-10-06 10:45 | XMS_ITS | Encounter Summary ---
Author Organization [facility] Address [facility] [place] [address] Care Team Providers Care Record Center Specialist Name Role Phone No Ref-Primary, Physician Primary Care Provider Reason for Visit * Reason Comments Genetic Counseling FOB hx Cleft lip Ultrasound L2- FOB hx Cleft lip Encounter Details Date Type Department Care Team (Late st Contact Info) Description 10/06/2024 10:45 AM CDT Office Visit [facility] [place] [address] [place] [address] Melany Portillo MD [address] [facility] [address] [facility] [address] [place] [address] Hereditary disease in family possibly affecting fetus, affecting management of mother in , single or unspecified fetus (Primary Dx) Social History Tobacco Use Types Packs/Day Years [...] as of this encounter Progress Notes * Melany Portillo MD - 10/06/2024 10:45 AM CDT Please see full imaging report from ViewPoint program under imaging tab. Thank-you for referring your patient for a [...] of a due to preeclampsia. These are anticipatedin [place] and we recommend that these start at [...] the patient (reviewing medical records/tests), in direct [id number] contact with the patient counseling and discussing the plan of care, documenting the visit in the electronic medical record, and communicating with other health ambulatory care coordinator and/or care coordination. Melany Portillo MD Maternal Medicine documented in this encounter Nursing Notes * Zuleika Thorpe RN - 10/06/2024 10:45 AM CDT Patient here for GC/L2 Patient denies pain, contractions, leaking of fluid, or bleeding. Patient has intermittent headaches. Denies visual changes, nausea/vomiting, epigastric pain related to preeclampsia. SBAR given to CHARLI GILMAN, see their note in Epic. documented in this encounter Plan of Treatment Not on file documented as of this encounter Visit Diagnoses Diagnosis Hereditary disease in family possibly affecting fetus, affecting management of mother in , single or unspecified fetus- Primary documented in this encounter Care Teams Record Center Specialist Relationship Specialty Start Date End Date No Ref-Primary, Physician PCP - General 08/23/24 documented as of this encounter
--- OUTSIDE RECORDS SUMMARY | 2024-10-27 14:14 | XMS_ITS | Encounter Summary ---
Author Organization [facility] Address [address] [place] [address] Care Team Providers Care Commodity Manager Name Role Phone No Ref-Primary, Physician Primary Care Provider Reason for Visit * Reason Comments Genetic Counseling Family history of cl eft lip Ultrasound L2-Family history of cleft lip Encounter Details Date Type Department Care Team ([facility] st Contact Info) Description 09/29/2024 PRE VISIT [facility] [place] [address] [facility] [facility] [address] [place] [id number] Shannon Walter, NANCY Genetic Counseling (Family history of cleft lip); Ultrasound (L2-Family history of cleft lip) Social History Tobacco Use Types Packs/Day Years [...] documented as of this encounter Visit Diagnoses Not on filedocumented in this encounter Care Teams Commodity Manager Relationship Specialty Start Date End Date No Ref-Primary, Physician PCP - General 08/23/24 documented as of this encounter
--- OUTSIDE RECORDS SUMMARY | 2024-10-27 14:14 | XMS_ITS ---
Author Organization [facility] Source Produ ction (ClinicalSummary Clone) Address Unknown Care Team Providers Care Senior Sales Assistant Name Role Phone Unavailable Primary Care Physician Unavailab le Results * [UNITY] CARRIER SCREEN Performed by: [employer] Value Range Date Sickle Cell Disease/Beta-Thalassemia/Hemo globinopathies carrier screen NEGATIVE 09/06/2024 03:27 pm [facility] Alpha-Thalassemia carrier screen NEGATIVE 09/06/2024 03:27 pm [facility] Cystic Fibrosis carrier screen NEGATIVE 09/06/2024 03:27 pm [facility] Spinal Muscular Atrophy carrier screen NEGATIVE 2 SMN1 copies, SNP not present 09/06/2024 03:27 pm [facility] For detailed report, see PDF See PDF 09/06/2024 03:27 pm UTC 09/06/2024 03:2 7 pm [facility] Social History Observation Value Start Date End Date
--- OUTSIDE RECORDS SUMMARY | 2024-10-27 14:14 | XMS_ITS | Encounter Summary ---
Author Organization [facility] Address [address] [place] [address] Care Team Providers Care Django Developer Name Role Phone No Ref-Primary, Physician Primary Care Provider Encounter Details Date Type Department Care Team (Latest Contact Info) Description 10/06/2024 Travel Social History Tobacco Use Types Packs/Day Years [...] on filedocumented in this encounter Care Teams Django Developer Relationship Specialty Start Date End Date No Ref-Primary, Physician PCP - General 08/23/24 documented as of this encounter
--- OUTSIDE RECORDS SUMMARY | 2024-10-27 14:14 | XMS_ITS ---
Author Organization [facility] Source Produ ction (ClinicalSummary Clone) Address Unknown Care Team Providers Care Wafer Line Worker Name Role Phone Unavailable Primary Care Physician Unavailab le Results * [UNITY] ANEUPLOIDY NIPT Performed by: [employer] Value Range Date Fraction 5.1% 09/01/2024 01 :35 am UTC 22q11.2 Microdeletion LOW RISK <1 in 10,000 09/01/2024 01:35 am [place] Sex Chromosome Aneuploidy NOT DETECTED 01:35 am UTC Monosomy X LOW RISK <1 in 10,000 2024 01:35 am UTC Trisomy 13 LOW RISK <1 in 10,000 2024 01:35 am UTC Trisomy 18 LOW RISK <1 in 10,000 2024 01:35 am UTC Trisomy 21 LOW RISK <1 in 10,000 2024 01:35 am UT Sex MALE 09/01/2024 01:3 5 am UTC Gestation KERN 09/02/19 01:35 am UT For detailed report, see PDF See PDF 09/01/2024 01:35 am UTC 09/01/2024 01:3 5 am [place] Social History Observation Value Start Date End Date
--- OUTSIDE RECORDS SUMMARY | 2024-10-27 14:14 | XMS_ITS | Clinical Summary ---
Author Organization [facility] Address [address] [place] [address] Care Team Providers Care Rn Case Manager Hospice Name Role Phone No Ref-Primary, Physician Primary Care Provider Encounters Date Type Department Care Team Description 10/06/2024 10:45 AM CDT Office Visit [facility] [place] [address] [place] [phone] Melany Portillo MD Hereditary disease in family possibly affecting fetus, affecting management of mother in , single or unspecified fetus (Primary Dx) 10/06/2024 9:30 AM CDT Office Visit [facility] [place] [address] [place] [phone] Melany Portillo MD Riley, Abigail M, Family history of cleft lip (Primary Dx); related condition, antepartum 10/06/2024 8:52 AM CDT - 10/06/2024 11:59 PM CDT Hospital Encounter [facility] [address] [place] [phone] Melany Portillo MD related condition, antepartum Discharge Disposition: Home or Self Care 10/06/2024 Travel 10/03/2024 Travel 09/29/[address] [facility] [address] [place] [phone] Saba, Shannon, RN Genetic Counseling (Family history of cleft lip); Ultrasound (L2-Family history of cleft lip) 08/23/2024 Medical Correspondence [facility] [address] [facility] [address] [place] [address] Scan, Non-Provider 08/23/[address] [facility] [place] [address] [facility] [address] [place] [address] Rody Marinelli MD related condition, antepartum (Primary Dx) 08/19/2024 Medical Correspondence [facility] [address] [facility] [address] [place] [address] Scan, Non-Provider from Last 3 Months Social History Tobacco Use Types Packs/Day Years Used Date Smoking Tobacco: Never Assessed Estimated Date of Delivery Comme nts Yes 02/26/2025 Based on last me nstrual period of 05/22/2024 Sex and Gender Information Value Date Recorded Sex Assigned at Not on file Legal Sex Female 10:10 AM CDT Gender Identity Not on file Sexual Orientation Not on file Plan of Treatment Health Maintenance Due Date Last Done Comments ADVANCE CARE PLANNING 1995 ANNUAL REVIEW OF HM ORDERS 1995 HEPATITIS B VACCINE (3 of 3 - 3-dose series) 06/28/1996 05/03/1996, 1995, 1995 YEARLY PREVENTIVE VISIT 08/19/1998 HPV VACCINE (2 - 2-dose series) 03/04/2008 09/03/2007 HIV SCREENING 08/19/2010 HEPATITIS C SCREENING 08/19/2013 PAP 08/19/2016 COVID-19 VACCINE (3 - season) 2023 11/10/2020, 10/20/2020 PHQ-2 (once per calendar year) 2024 MATERNAL SCREENING DISCUSSION 07/31/2024 OBGCT (OB) 11/06/2024 INFLUENZA VACCINE (#1) 2024 , 12/26/2022, 12/05/2021, Additional history exists RSV VACCINE (1 - Risk 1-dose series) 01/01/2025 DTAP/TDAP/TD VACCINE (8 - Td or Tdap) 06/17/2032 06/17/2022, 06/01/2018, 09/03/2007, Additional history exists ZOSTER VACCINE (1 of 2) 08/19/2045 MENINGITIS VACCINE Completed 10/14/2013, 11/03/2007 PNEUMOCOCCAL VACCINE: PEDIATRICS (0 to 5 YEARS) AND AT-RISK PATIENTS (6 to 49 YEARS) Aged Out No longer eligible based on patient's age to complete this topic Procedures Procedure Name Priority Date/Time Associated Diagnosis Comments [facility] US COMPREHENSIVE SINGLE Routine 10/06/2024 10:44 AM CDT related condition, antepartum from Last 3 Months Results * [facility] US Comprehensive Single (10/06/2024 10:44 AM CDT) [...] 10:58 AM CDT Comprehensive ----- Pat. Name: ODALYS MALONEY Study Date: 10/06/2024 10:04am Pat. NO: [id number] Referring MD: RODY MARINELLI Site: Beauty Director: Erinn Bruno RDMS : 1995 Age: 29 [...] 5d Hadlock Humerus 29.9 mm 19w 6d Laith Weight Calculation: EFW 322 g 66% Hadlock EFW (lb,oz) 0 lb 11 oz EFW by Hadlock ([id number]) Head / Face / Neck Biometry: Staffing Coordinator 6.5 mm CM 4.5 mm Nasal bone 5.6 mm ANATOMY ----- The following structures appear normal: Head / Neck Cranium. Head size. Head shape. Lateral ventricles. Choroid plexus. Midline falx. Cavum septi pellucidi. Cerebellum. Cisterna magna. Parenchyma. Thalami. Vermis. Neck. Nuchal fold. Face Lips. Profile. Nose. Maxilla. Mandible. Orbits. Lens. Heart / Thorax 4-chamber view. RVOT view. LVOT view. 3-vessel view. 6-rmmivv-quvhmay view. Situs. Aortic arch view. Bicaval view. [...] due to preeclampsia. These are anticipated in [place] and we recommend that these start at [...] the patient (reviewing medical records/tests), in direct zudq-pc-qjae contact with the patient counseling and discussing the plan of care, documenting the visit in the electronic medical record, and communicating with other health primary care nurse and/or care coordination. Procedure Note Melany Portillo MD - 10/06/2024 Comprehensive ----- Pat. Name: ODALYS MALONEY Study Date: 10/06/2024 10:04am Pat. NO: [id number] Referring MD: RODY MARINELLI Site: Beauty Director: Erinn Bruno RDMS : 1995 Age: 29 [...] dating based on the LMP, selected on 9w + 4 d 02/26/2025 GENERAL EVALUATION ----- [...] EFW (lb,oz) 0 lb 11oz EFW by Hadlock([id number]) Head / Face / Neck Biometry: Staffing Coordinator 6.5mm CM 4.5mm Nasal bone 5.6mm ANATOMY ----- The following structures appear normal: Head / Neck Cranium. Head size. Head shape.Lateral ventricles. Choroid plexus. Midline falx. Cavum septi pellucidi.Cerebellum. Cisterna magna. Parenchyma. Thalami. Vermis. Neck. Nuchal fold. Face Lips. Profile. Nose. Maxilla.Mandible. Orbits. Lens. Heart / Thorax 4-chamber view. RVOT view. LVOT view.3-vessel view. 1-ijaryu-spiwbdg view. Situs. Aortic arch view. Bicavalview. Ductal [...] aneuploidy and structural abnormalities. Ultrasound can routinely [id number]% of structural abnormalities. She had low risk cell free DNAfor genetic screening this . She plans weekly BPPs for her history of a due topreeclampsia. These are anticipated in [place] and we recommend thatthese start at 32 [...] see the patient(reviewing medical records/tests), in direct rsfw-gc-utru contact with the patient counseling and discussingthe plan of care, documenting the visit in the electronic medical record,and communicating with other health primary care nurse and/or care coordination. IMPRESSION ----- 1. Conn [...] imaging the cervix appeared long and closed. us Rody Marinelli MD [facility] US ORDERABLES Edited Re sult - Final from Last 3 Months Insurance [facility]ICE [place] [address] Care Teams Rn Case Manager Hospice Relationship Specialty Start Date End Date No Ref-Primary, Physician PCP - General 08/23/24
--- OUTSIDE RECORDS SUMMARY | 2024-10-27 14:15 | XMS_ITS | Encounter Summary ---
Author Organization [facility] Address [address] [place] [address] Care Team Providers Care Radius Grinder Name Role Phone No Ref-Primary, Physician Primary Care Provider Encounter Details Date Type Department Care Team (Latest Contact Info) Description 10/03/2024 Travel Social History Tobacco Use Types Packs/Day [...] on filedocumented in this encounter Care Teams Radius Grinder Relationship Specialty Start Date End Date No Ref-Primary, Physician PCP - General 08/23/24 documented as of this encounter
[2024-10-27 14:24] VITALS: BP 126/81; PULSE 100; RESP 20; TEMP 36.7; O2SAT 98; BMI 31.7
--- NOTE | 2024-10-27 14:51 | CRLHL7_ITS ---
For Patients: As a result of the Century Cures Act, medical imaging exams and procedure reports are released immediately into your electronic medical record. You may view this report before your referring provider. If you have questions, please contact your health care provider. INDICATION: Dizziness and headache. TECHNIQUE: CT head without contrast. COMPARISON: None. FINDINGS: Brain: No intra or extra-axial fluid collection, mass or edema. Patino-white differentiation is normal. No hydrocephalus. Other: No displaced calvarial fracture. Visualized portions of the orbits, mastoids and paranasal sinuses are unremarkable. IMPRESSION: No gross acute intracranial abnormality. Please note that all CT scans at this facility use dose modulation, iterative reconstruction, and/or weight-based dosing when appropriate to reduce radiation dose to as low as reasonably achievable. Dictated by Cecilio Klein MD @ 10/27/2024 3:51:22 PM (Electronically Signed)
[2024-10-27] MEDS: METOCLOPRAMIDE HCL 5 MG/ML INJ 10 MG IVP (15:10)
[2024-10-27] MEDS: LACTATED RINGERS 1000 ML 1,000 ML IV (15:10)
--- NOTE | 2024-10-27 16:00 | ED_ITS ---
HPI - General Adult General Date Seen: 10/27/24 Chief complaint: Eye Problems Stated complaint: headache, vision changes, sent from OB Time Seen by Provider: 10/27/24 14:44 Source: patient Mode of arrival: ambulatory Limitations: no limitations History of Present Illness HPI narrative: Patient is a 29-year-old female presenting to emergency department for headache. She is 22 weeks . She has a history of just follow-up for preeclampsia with a prior of his normal blood pressure currently. She was at an OB appointment when she is complaining about a worsening headache with aura. She has been having migraines with her he Kody but states this was worse has never had the visual changes before. Sore she describes it as feeling like a band around her head. Has not had any fevers or chills. Denies any weakness or numbness. No other concerns noted. Of note the patient's Ob did speak to was prior to sending to the ED. Related Data Home Medications ?Medication ?Instructions ?Recorded ?Confirmed [id number]-kvdt-[id number]-[id number] 3 fatty no.1 27 cap PO 07/19/2410/09 0 mg-1 mg-300 mg capsule doxylamine succinate 25 mg tablet 25 mg PO QHS PRN 03/0310/27/24 (Unisom (doxylamine)) pyridoxine (vitamin B6) 10 mg 10 mg PO QDAY 08/19/24 0 10/27/24 tablet aspirin 81 mg chewable tablet 81 mg PO QDAY 09/15/24 0 10/27/24 Previous Rx's ?Medication ?Instructions ?Recorded ondansetron 8 mg disintegrating 8 mg PO TID PRN nausea and 05/04/24 tablet vomiting #30 tabs fluoxetine 40 mg capsule 40 mg PO QDAY #90 caps 05/24 buspirone 5 mg tablet 5 mg PO BID #60 tabs 5 fluoxetine 20 mg capsule 20 mg PO QDAY #90 caps 10/22 metoclopramide HCl 10 mg tablet 10 mg PO Q8H PRN nause a and 10/27/24 (Reglan) vomiting #30 tabs Allergies Allergy/AdvReac Type Severity Reaction Status Date / Time human papillomavirus Allergy Severe Arm Went Verified 10/27/24 14:24 vaccine, quadr Black sumatriptan (From Imitrex) Allergy Intermediate Verified 10/27/24 14:24 Review of Systems Status of ROS: Reports: 10 or more systems reviewed and unremarkable except as noted in History and below [facility] Medical History Fracture of fifth metatarsal bone of right foot ?S92.351A - Displaced fracture of fifth metatarsal bone, right foot, initial encounter for closed fracture (ICD-10) Pre-eclampsia affecting puerperium ?O14.95 - Unspecified pre-eclampsia, complicating the puerperium (ICD-10) (normal spontaneous vaginal delivery) ?O80 - Encounter for full-term uncomplicated delivery (ICD-10) Gestational hypertension ?O13.9 - Gestational [-induced] hypertension without significant proteinuria, unspecified trimester (ICD-10) Migraine with aura ?G43.109 - Migraine with aura, not intractable, without status migrainosus (ICD-10) History of menorrhagia ?Z87.42 - Personal history of other diseases of the female genital tract (ICD-10) History of abnormal cervical Papanicolaou smear (05/08/17) ?Z87.42 - Personal history of other diseases of the female genital tract (ICD-10) Surgical History History of wisdom tooth extraction ?K08.409 - Partial loss of teeth, unspecified cause, unspecified class (ICD- 10) History of tonsillectomy (10/08/12) ?Z90.89 - Acquired absence of other organs (ICD-10) Family History Family/Other Coronary artery disease Family/Other Prostate cancer 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 . Nonsmoker. What is your current living situation?: I presently have a place to live Problems where you live: no known problems In the past 12 months, utilities in danger of being shut off: no In past 12 months, lack of transportation kept you from medical appts, meetings, work, or getting things needed for daily living: no In the past 12 mos, have been you worried that your food would run out before you had money to buy more?: never true In the past 12 mos, the food you bought just didn't last and you didn't have money to buy more?: never true Smoking Status: Never smoker How often do you have a drink containing alcohol: 2-4 times a month How many standard drinks containing alcohol do you have on a typical day: 1 or 2 AUDIT-C Alcohol total score: 2 Non-prescribed substance use: denies use How often does anyone, including family, friends and others, physically hurt you : never How often does anyone, including family, friends and others, insult or talk down to you: never How often does anyone, including family, friends and others, threaten you with harm: never How often does anyone, including family, friends and others, scream or curse at you: never Exam Narrative: Exam Narrative: Const: Well-nourished, Well-developed, in mild distress Eyes: PERRL, no conjunctival injection, and symmetrical lids HENT: Atraumatic external nose and ears. Moist mucous membranes. Neck: Symmetric, trachea midline, No thyromegaly. CVS: RRR, No murmurs or gallops. Peripheral pulses 2+ and equal in all extremities RESP: Unlabored respiratory effort. Clear to auscultation bilaterally. GI: Nontender/Nondistended, No rebound or guarding. MSK:Extremities w/o deformity, Normal Active ROM Skin: Warm, Dry. No rashes or lesions. Neuro: Normal Muscle tone, No focal neurological deficits. Psych: Awake, Alert, & Oriented x3. Appropriate mood and affect. Const: Vital Signs, click to edit/add: Vital Signs - 24 hr 10/27/24 14:24 Temperature 98.0 F Pulse Rate [Pulse Oximeter] 100 Respiratory Rate 20 Blood Pressure [Ri ght Upper Arm] 126/81 Pulse Oximetry 98 Oxygen Delivery Me thod Room Air Course Vital Signs Vital signs: Initial Vital Signs Temperature 98.0 F 10/27/24 14:24 Temperature Source Temporal Artery Scan 10/27/24 14:24 Pulse Rate 100 10/27/24 14:24 Respiratory Rate 20 10/27/24 14:24 Blood Pressure 126/81 10/27/24 14:24 Blood Pressure Mean 96 10/27/24 14:24 Pulse Oximetry 98 10/27/24 14:24 Oxygen Delivery Method Room Air 10/27/24 14:24 Vital Signs Temperature 98.0 F 10/27/24 14:24 Pulse Rate 100 10/27/24 14:24 Respiratory Rate 20 10/27/24 14:24 Blood Pressure 126/81 10/27/24 14:24 Pulse Oximetry 98 10/27/24 14:24 Oxygen Delivery Method Room Air 10/27/24 14:24 Temperature 98.0 F 10/27/24 14:24 Pulse Rate 100 10/27/24 14:24 Respiratory Rate 20 10/27/24 14:24 Blood Pressure 126/81 10/27/24 14:24 Pulse Oximetry 98 10/27/24 14:24 Oxygen Delivery Method Room Air 10/27/24 14:24 Medications Administered Medications: Discontinued Medications Generic Name Dose Route Start Last Admin Trade Name Freq PRN Reason Stop Dose Admin Diphenhydramine HCl 25 mg 10/27/24 14:51 10/27/24 15:10 Diphenhydramine 50 Mg/Ml Inj IVP 10/27/24 14:52 25 mg ONCE ONE Administration Lactated Ringer's 1,000 mls @ 1,000 mls/hr 10/27/24 14:51 10/27/24 16:02 Lactated Ringers 1000 Ml IV 10/27/24 15:50 Infused .Q1H ONE Infusion Metoclopramide HCl 10 mg 10/27/24 14:51 10/27/24 15:10 Metoclopramide Hcl 5 Mg/Ml Inj IVP 10/27/24 14:52 10 mg ONCE ONE Administration Medical Decision Making [facility] Narrative Medical decision making narrative: Patient is a 29-year-old female presenting for headache. Differential for headache includes migraine, tension headache, cluster headache, intracranial mass, infection, meningitis. Not having any meningeal signs. She has had similar headaches before this 1 just seems worse. Considering she is also now having an aura I will order a CT scan of her head. I spoke to the patient about safety of head CT scans in . Ob did order preeclampsia labs and clinic today and I do not need to repeat this especially considering the normal blood pressure. Will order the patient a migraine cocktail including fluids, Benadryl, Reglan. CT scan reviewed by myself and the radiologist shows no acute concerning abnormalities. She is feeling better after the migraine cocktail. I do believe she is safe for discharge. She is agreeable to this plan. Imaging Data CT scan - head: Radiologist's impression: No gross acute intracranial abnormality. Please note that all CT scans at this facility use dose modulation, iterative reconstruction, and/or weight-based dosing when appropriate to reduce radiation dose to as low as reasonably achievable. Dictated by Cecilio Klein MD @ 10/27/2024 3:51:22 PM Discharge Plan Discharge Clinical Impression: Migraine with aura Qualifiers: Status migrainosus presence: without status migrainosus Intractability: not intractable Qualified Code(s): G43.109 - Migraine with aura, not intractable, without status migrainosus Patient Disposition: Home, Self-Care Condition: Improved Instructions: Migraine Headache (ED) Additional Instructions: Follow-up with primary care if headache persists. Return for new or worsening symptoms Prescriptions: No Action fluoxetine 40 mg capsule 40 mg PO QDAY Qty: 90 1RF aspirin 81 mg tablet,chewable 81 mg PO QDAY PYN-qjxc-JW-omega 3 fatty no.1 27-1-300 mg capsule PO Unisom (doxylamine) 25 mg tablet 25 mg PO QHS PRN pyridoxine (vitamin B6) 10 mg tablet 10 mg PO QDAY metoclopramide HCl [Reglan] 10 mg tablet 10 mg PO Q8H PRN (Reason: nausea and vomiting) Qty: 30 0RF ondansetron 8 mg tablet,disintegrating 8 mg PO TID PRN (Reason: nausea and vomiting) Qty: 30 2RF buspirone 5 mg tablet 5 mg PO BID Qty: 60 6RF fluoxetine 20 mg capsule 20 mg PO QDAY Qty: 90 1RF Rx Instructions: Total daily dose is 60 mg QD Follow Up/Referrals: Sagar Ruelas MD [Primary Care Provider, Family Practice] Stand Alone Forms: [facility] Info Instructions
== END 2024-10-27 16:10 | disposition home or self-care (01) ==
PROVIDERS: Emergency Provider Student in an Organized Health Care Education/Training Program; PCP Family Medicine
DX: G43.109 Migraine with aura, not intractable, without status migrainosus (principal); Z33.1 Pregnant state, incidental
CPT/HCPCS: 70450; 96374; 96375; 99283; 99284; J1200; J2765; J7120

== ENCOUNTER 2024-11-01 07:00 | Outpatient (CLI) | payer OTHER, SELFPAY | END 2024-11-01 07:01 | disposition home or self-care (01) | PROVIDERS: PCP Family Medicine; Referring Provider Family Medicine; Visit Provider Obstetrics & Gynecology | DX: R03.0 Elevated blood-pressure reading, without diagnosis of hypertension (principal) | CPT/HCPCS: 82570; 84156 ==

== ENCOUNTER 2024-11-02 13:04 | Outpatient (CLI) | payer OTHER, SELFPAY ==
[2024-11-02 13:17] VITALS: PULSE 81; O2SAT 96
[2024-11-02 13:22] VITALS: PULSE 80; O2SAT 96
[2024-11-02 13:27] VITALS: BP 107/66; PULSE 79
[2024-11-02 13:28] VITALS: RESP 18; TEMP 36.8
--- NOTE | 2024-11-02 14:26 | PC.OBNST ---
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 Joann did not fall but was jazmin/shook up and teary/nervous after the incident. She had no concerns after we applied the EFM. She felt reassured and much better. Appropriate for Yes Gestational Age NANCY Gaines Date 11/02/24 Appropriate for Yes Gestational Age NANCY [place]ley Date 11/02/24 OB NST charge Yes Complete NST Note Yes via Write Note The provider's electronic signature indicates the NST is reactive/appropriate for gestational age. *Note to provider: If an addendum is required, open the patient's chart and click on the note under the Nurse/Allied Health tab.
== END 2024-11-02 13:58 | disposition home or self-care (01) ==
LOC: OB OUT 13:05 → OB 13:08
PROVIDERS: PCP Family Medicine; Visit Provider Obstetrics & Gynecology
DX: O10.912 Unspecified pre-existing hypertension complicating pregnancy, second trimester (principal); Z3A.23 23 weeks gestation of pregnancy
CPT/HCPCS: 59025; G0463

== ENCOUNTER 2024-12-10 08:50 | Outpatient (CLI) | payer OTHER, SELFPAY | END 2024-12-10 08:51 | disposition home or self-care (01) | LOC: NFLDREF 12-13 12:10 | PROVIDERS: PCP Family Medicine; Referring Provider Family Medicine; Visit Provider Obstetrics & Gynecology | DX: O36.63X0 Maternal care for excessive fetal growth, third trimester, not applicable or unspecified (principal); Z3A.28 28 weeks gestation of pregnancy | CPT/HCPCS: 86592 ==

== ENCOUNTER 2024-12-10 08:52 | Outpatient (CLI) | payer OTHER, SELFPAY ==
--- NOTE | 2024-12-10 09:15 | CRLHL7_ITS ---
For Patients: As a result of the Cures Act, medical imaging exams and procedure reports are released immediately into your electronic medical record. You may view this report before your referring provider. If you have questions, please contact your health care provider. OB ULTRASOUND RODRIGO by LMP: 02/26/2025. GA: 28 w, 6 d. Single. Comparison: 10/06/2024 and 07/19/2024. INDICATION: History of pre-term delivery due to pre-eclampsia. TECHNIQUE: Real time grayscale imaging of the fetus was performed. Transabdominal. CERVIX: Visualized. Measurement: 4.0 cm. POSITIONING: Vertex. AMNIOTIC FLUID: 5.4 cm. SDP (N: greater than 2 x 1 cm) PLACENTA: Technique: Transabdominal. PLACENTA POSITION: Posterior. DOPPLER: heart rate: 154 bpm. BIOMETRY: BPD: 7.5 cm. 30 w, 0 d, 74.2%. HC: 28.1 cm. 30 w, 5 d, 74.1%. AC: 26.1 cm. 30 w, 2 d, 82.3%. FL: 5.4 cm. 28 w, 4 d, 27.3%. FL/AC ratio: 20.70%. HC/AC ratio: 1.08. EFW: 1446g. Weight: 3 lbs, 3 oz. age by this US: 29 w, 6 d. RODRIGO by this US: 02/19/2025. Percentile by RODRIGO: 70.5%. IMPRESSION: 1. Sonographic gestational age 29 weeks 6 days and sonographic due date 02/19/2025. Sonographic age is 1 week ahead of the clinical age. 2. Estimated weight 71st percentile. Abdominal circumference 82nd percentile. Sagar Ramirez M.D. Diagnostic Radiologist [email or web address] MARTIN/lisset darling/Dictated by: Sagar Ramirez MD @ 12/10/2024 10:47:00 AM (Electronically Signed)
== END 2024-12-10 08:53 | disposition home or self-care (01) ==
LOC: US 08:52
PROVIDERS: PCP Family Medicine; Visit Provider Obstetrics & Gynecology
DX: O09.213 Supervision of pregnancy with history of pre-term labor, third trimester (principal); O36.63X0 Maternal care for excessive fetal growth, third trimester, not applicable or unspecified; Z3A.28 28 weeks gestation of pregnancy
CPT/HCPCS: 76816

== ENCOUNTER 2025-01-05 10:04 | Outpatient (CLI) | payer OTHER, SELFPAY ==
--- NOTE | 2025-01-05 10:15 | CRLHL7_ITS ---
For Patients: As a result of the Cures Act, medical imaging exams and procedure reports are released immediately into your electronic medical record. You may view this report before your referring provider. If you have questions, please contact your health care provider. OBSTETRICAL ULTRASOUND ??? FOLLOW-UP INDICATION: Supervision of normal . History of delivery due to preeclampsia. Follow-up growth. CLINICAL HISTORY: LMP: 05/22/2024 RODRIGO by LMP: 02/26/2025 Gestational Age: 32 weeks 4 days COMPARISON: 12/10/2024 TECHNIQUE: Real-time singletary-scale transabdominal imaging of the fetus was performed. FINDINGS: Fetus: Single Cervix: Not visualized positioning: Vertex Amniotic Fluid: 6.3 cm SDP Placenta technique: Transabdominal Placenta position: Posterior heart rate: 139 bpm BIOMETRY: BPD: 8.3 cm, 33 weeks 2 days, 66% HC: 30.8 cm, 34 weeks 2 days, 59% AC: 28.4 cm, 32 weeks 3 days, 46% FL: 6.2 cm, 32 weeks 0 days, 24% FL/AC Ratio: 21.75% HC/AC ratio: 1.08 EFW: 2007 grams; 4 lbs. 7 oz. age by this ultrasound: 33 weeks 0 days RODRIGO by this ultrasound: 02/23/2025 Percentile by RODRIGO: 40% IMPRESSION: 1. Sonographic gestational age is 33 weeks 0 days and sonographic due date is 02/23/2025. Good correlation with dates. Normal interval growth. 2. Estimated weight is 40th percentile. Abdominal circumference is 46th percentile. SAGAR POPE M.D. Diagnostic Radiologist [email or web address] Transcribed: 12:[address]/Dictated by: Sagar Pope MD @ 01/05/2025 11:30:00 AM (Electronically Signed)
== END 2025-01-05 10:05 | disposition home or self-care (01) ==
LOC: US 10:04
PROVIDERS: PCP Family Medicine; Visit Provider Obstetrics & Gynecology
DX: O09.213 Supervision of pregnancy with history of pre-term labor, third trimester (principal); Z3A.33 33 weeks gestation of pregnancy
CPT/HCPCS: 76816

== ENCOUNTER 2025-01-12 10:13 | Outpatient (CLI) | payer OTHER, SELFPAY ==
--- NOTE | 2025-01-12 10:15 | CRLHL7_ITS ---
For Patients: As a result of the Century Cures Act, medical imaging exams and procedure reports are released immediately into your electronic medical record. You may view this report before your referring provider. If you have questions, please contact your health care provider. IMPRESSION: Normal biophysical profile 10/15. Dictated by Sagar Ramirez MD @ 01/12/2025 12:04:39 PM (Electronically Signed)
== END 2025-01-12 10:14 | disposition home or self-care (01) ==
LOC: US 10:13
PROVIDERS: PCP Family Medicine; Visit Provider Obstetrics & Gynecology
DX: O09.293 Supervision of pregnancy with other poor reproductive or obstetric history, third trimester (principal); Z3A.33 33 weeks gestation of pregnancy
CPT/HCPCS: 76819

== ENCOUNTER 2025-01-19 08:59 | Outpatient (CLI) | payer OTHER, SELFPAY ==
--- NOTE | 2025-01-19 09:15 | CRLHL7_ITS ---
For Patients: As a result of the Cures Act, medical imaging exams and procedure reports are released immediately into your electronic medical record. You may view this report before your referring provider. If you have questions, please contact your health care provider. OB ULTRASOUND BIOPHYSICAL PROFILE CLINICAL HISTORY: History of labor due to pre-eclampsia. TECHNIQUE: Real time singletary scale imaging of the fetus was performed. Transabdominal imaging performed. Gestation: Single. COMPARISON: 01/11/2025, 01/05/2025, 12/10/2024, 10/06/2024. FINDINGS: RODRIGO by LMP: 02/26/2025. GA: 34 weeks 4 days. Cervix: Not visualized. Positioning: Vertex. Amniotic Fluid: 6.4 cm SDP. BIOPHYSICAL PROFILE Gross Body Movements: 2 Tone: 2 Respiratory Activity: 2 Amniotic Fluid SDP: 2 Total Score: 8 Placenta: Technique: TA. Placenta Position: Posterior. Dopplers: Heart Rate: 142 bpm. IMPRESSION: Normal biophysical profile score of 8/8. Sagar Ramirez M.D. Diagnostic Radiologist [facility] [employer] [email or web address] Transcribed: 11:16 am DW/Dictated by: Sagar Ramirez MD @ 01/19/2025 10:22:00 AM (Electronically Signed)
== END 2025-01-19 09:00 | disposition home or self-care (01) ==
LOC: US 08:59
PROVIDERS: PCP Family Medicine; Visit Provider Obstetrics & Gynecology
DX: O09.213 Supervision of pregnancy with history of pre-term labor, third trimester (principal); O26.893 Other specified pregnancy related conditions, third trimester; R03.0 Elevated blood-pressure reading, without diagnosis of hypertension; Z3A.34 34 weeks gestation of pregnancy
CPT/HCPCS: 76819

== ENCOUNTER 2025-01-19 10:23 | Outpatient (CLI) | payer OTHER, SELFPAY ==
[2025-01-20 09:48] LABS: Strep B DNA Probe Negative (Negative)
[2025-01-20 09:54] LABS: Strep B Susceptibility Needed? No
== END 2025-01-19 10:24 | disposition home or self-care (01) ==
LOC: NFLDREF 10:24
PROVIDERS: PCP Family Medicine; Visit Provider Obstetrics & Gynecology
DX: O47.03 False labor before 37 completed weeks of gestation, third trimester (principal)
CPT/HCPCS: 87081; 87653

== ENCOUNTER 2025-01-26 09:59 | Outpatient (CLI) | payer OTHER, SELFPAY ==
--- NOTE | 2025-01-26 10:15 | CRLHL7_ITS ---
For Patients: As a result of the Cures Act, medical imaging exams and procedure reports are released immediately into your electronic medical record. You may view this report before your referring provider. If you have questions, please contact your health care provider. OB ULTRASOUND BIOPHYSICAL PROFILE CLINICAL HISTORY: History of pre-eclampsia. TECHNIQUE: Real time singletary scale imaging of the fetus was performed. Transabdominal imaging performed. COMPARISON: 01/12/2025, 01/19/2025. FINDINGS: LMP: 05/22/2024. RODRIGO by LMP: 02/26/2025. GA: 35 weeks 4 days. Gestation: Single. Cervix: Not visualized. Positioning: Vertex. Amniotic Fluid: 6.7 cm SDP. BIOPHYSICAL PROFILE Gross Body Movements: 2 Tone: 2 Respiratory Activity: 2 Amniotic Fluid SDP: 2 Total Score: 8 Placenta: Technique: TA. Placenta Position: Posterior. Dopplers: Heart Rate: 143 bpm. IMPRESSION: Normal biophysical profile score of 8/8. Sagar Ramirez M.D. Diagnostic Radiologist [email or web address] Transcribed: 11:54 am DW/Dictated by: Sagar Ramirez MD @ 01/26/2025 11:24:00 AM (Electronically Signed)
== END 2025-01-26 10:00 | disposition home or self-care (01) ==
LOC: US 10:00
PROVIDERS: PCP Family Medicine; Visit Provider Obstetrics & Gynecology
DX: O09.213 Supervision of pregnancy with history of pre-term labor, third trimester (principal); Z3A.35 35 weeks gestation of pregnancy
CPT/HCPCS: 76819

== ENCOUNTER 2025-02-02 13:44 | Outpatient (CLI) | payer OTHER, SELFPAY ==
--- NOTE | 2025-02-02 14:00 | CRLHL7_ITS ---
For Patients: As a result of the Century Cures Act, medical imaging exams and procedure reports are released immediately into your electronic medical record. You may view this report before your referring provider. If you have questions, please contact your health care provider. OBSTETRICAL ULTRASOUND WITH BIOPHYSICAL PROFILE, 02/02/2025 INDICATION: History of delivery due to pre-eclampsia. RODRIGO by LMP: 02/26/2025 GESTATIONAL AGE: 36 weeks 4 days TECHNIQUE: Real-time singletary-scale imaging of the fetus was performed transabdominal. BIOPHYSICAL PROFILE Gross Body Movements: 2. Tone: 2. Respiratory Activity: 2. Amniotic Fluid SDP (N: Greater 2 x 1 cm) TOTAL SCORE: 8/8. FINDINGS: Technique: Transabdominal. Placenta Position: Posterior. Heart Rate: 121 bpm. BIOMETRY BPD: 8.7 cm, 34 weeks 6 days, 17.1 percentile. HC: 32.8 cm, 37 weeks 1 day, 36.8 percentile. AC: 33.8 cm, 37 weeks 5 days, 88.3 percentile. FL: 6.8 cm, 35 weeks, 1 day, 14.3 percentile. FL/AC: 20.22% HC/AC ratio: 0.97. Estimated weight: 3013 grams (6 pounds 10 ounces) Age by this Ultrasound: 36 weeks 2 days. RODRIGO by this US: 02/28/2025. Percentile by RODRIGO: 58.1 percentile. IMPRESSION: 1) Normal biophysical profile 8/8. 2) Sonographic gestational age 36 weeks 2 days and sonographic due date 02/28/2025. Good correlation with dates. Normal interval growth. 3) Estimated weight 58th percentile. Abdominal circumference 88th percentile. Sagar Ramirez M.D. Diagnostic Radiologist [email or web address] MARTIN/jose a DW/Dictated by: Sagar Ramirez MD @ 02/03/2025 6:08:00 PM (Electronically Signed)
== END 2025-02-02 13:45 | disposition home or self-care (01) ==
LOC: US 13:44
PROVIDERS: PCP Family Medicine; Visit Provider Obstetrics & Gynecology
DX: O09.213 Supervision of pregnancy with history of pre-term labor, third trimester (principal); Z3A.36 36 weeks gestation of pregnancy
CPT/HCPCS: 76816; 76819

== ENCOUNTER 2025-02-09 09:10 | Outpatient (CLI) | payer OTHER, SELFPAY ==
--- NOTE | 2025-02-09 09:30 | CRLHL7_ITS ---
For Patients: As a result of the Cures Act, medical imaging exams and procedure reports are released immediately into your electronic medical record. You may view this report before your referring provider. If you have questions, please contact your health care provider. OB ULTRASOUND RODRIGO by LMP: 02/26/2025. GA: 37 w, 4 d. Single. Comparison: 02/02/2025, 01/26/2025, 01/19/2025. INDICATION: History of pre-term delivery due to pre-eclampsia. TECHNIQUE: Real time grayscale imaging of the fetus was performed. Transabdominal. CERVIX: Not visualized. POSITIONING: Vertex. AMNIOTIC FLUID: 3.4 cm. SDP (N: greater than 2 x 1 cm) BIOPHYSICAL PROFILE: 2: Gross body movements 2: tone 2: Respiratory activity 2: Amniotic fluid SDP (N: greater than 2 x 1 cm) 8/8: Total score PLACENTA: Technique: Transabdominal. PLACENTA POSITION: Posterior. IMPRESSION: 1. heart rate ranges between 102 and 132 beats per minute. 2. Normal biophysical profile score 8/8. Sagar Ramirez M.D. Diagnostic Radiologist [email or web address] MARTIN/lisset darling/Dictated by: Sagar Ramirez MD @ 02/09/2025 9:58:00 AM (Electronically Signed)
== END 2025-02-09 09:11 | disposition home or self-care (01) ==
LOC: US 09:10
PROVIDERS: PCP Family Medicine; Visit Provider Obstetrics & Gynecology
DX: O10.913 Unspecified pre-existing hypertension complicating pregnancy, third trimester (principal); Z3A.37 37 weeks gestation of pregnancy
CPT/HCPCS: 76819

== ENCOUNTER 2025-02-10 17:19 | Outpatient (CLI) | payer OTHER, SELFPAY ==
--- NOTE | 2025-02-10 17:43 | CRLHL7_ITS ---
For Patients: As a result of the Century Cures Act, medical imaging exams and procedure reports are released immediately into your electronic medical record. You may view this report before your referring provider. If you have questions, please contact your health care provider. INDICATION: Decreased movement. TECHNIQUE: Ultrasound OB pelvis transabdominal. Real-time singletary-scale imaging of the fetus was performed without stress testing. COMPARISON: Ob ultrasound 02/09/2025. FINDINGS: heart rate: Regular, 137 bpm. position: Vertex. Placenta position: Posterior. Amniotic fluid volume single deepest pocket 9.4 cm, 2/2. Amniotic fluid index: 24.3 motion 2/2. tone 2/2. breathing movements 2/2. IMPRESSION: Single viable intrauterine with a biophysical profile 10/15. FHR 137 beats per minute. BERNARDO 24.3, upper limits of normal, increased compared to prior. Dictated by Sukhdev Beal MD @ 02/10/2025 7:16:31 PM (Electronically Signed)
[2025-02-10 18:34] VITALS: BP 121/85; PULSE 93
--- NOTE | 2025-02-10 18:43 | PC.OBNST ---
NST Note NST Note Start: 02/10/25 17:26 Freq: ONCE Status: Active Protocol: Document 02/10/25 18:42 [facility] (Rec: 02/10/25 18:43 [facility] [id number]) NST Note 2 Para (# of births) 1 EDC 02/26/25 Gestational Age In 37 Weeks & 5 Days Weeks & Days High Risk Factors High Blood Pressure - Preexisting Patient Presented Decreased movement with Complaint(s) of Reactive Yes Appropriate for Yes Gestational Age NANCY Watson RNC Date 02/10/25 Reactive Yes Appropriate for Yes Gestational Age NANCY Carney RN Date 02/10/25 OB NST charge Yes Complete NST Note Yes via Write Note The provider's electronic signature indicates the NST is reactive/appropriate for gestational age. *Note to provider: If an addendum is required, open the patient's chart and click on the note under the Nurse/Allied Health tab.
== END 2025-02-10 18:40 | disposition home or self-care (01) ==
LOC: OB OUT 17:20 → OB 17:22
PROVIDERS: PCP Family Medicine; Visit Provider Obstetrics & Gynecology
DX: O10.913 Unspecified pre-existing hypertension complicating pregnancy, third trimester (principal); O36.8130 Decreased fetal movements, third trimester, not applicable or unspecified; Z3A.37 37 weeks gestation of pregnancy
CPT/HCPCS: 59025; 76819; G0463

== ENCOUNTER 2025-02-13 15:49 | Inpatient (IN) | payer OTHER, SELFPAY ==
[2025-02-13] VITALS (17 sets, daily range): BP systolic 117–141; BP diastolic 64–100; PULSE 80–144; RESP 16–17; TEMP 36.8; O2SAT 81–100; BMI 32.8
--- NOTE | 2025-02-13 17:27 | P.LDBA_ITS ---
Subjective History of Present Illness Date Seen: 02/13/25 Narrative: Patient is being admitted to Labor and Delivery for IOL due to CHTN diagnosis. She is a 29 year old at 38 1/7 weeks gestation. Her full history and physical was dictated by Dr. Bentley on 02/09/25. Please see this for details. 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 Blood pressures mild range elevated. Specific Issues/Plans Partner: Gabby Baby boy: undecided H&P: Mc on 02/09 # Chronic HTN. History of gestational hypertension with superimposed preeclampsia with severe features. Elevated BPs outside of : 148/92, 154/88 on 10/15/23, 124/84 on 03/08, 138/86 on 05/24/24 Aspirin 81 mg Baseline pre E labs: AST 37 (2 points above normal), ALT 18. pr/cr ratio. 0.02 09/15/2024 repeat AST: 26 24 hour urine protein: 183mg Repeat 24 hour urine protein 11/01: 130 mg Monthly US for growth at 28 weeks: surveillance form turned in on 10/15 Weekly testing (with labs if medication required) If no meds, 38 0/7 - 39 6/7 weeks recommended. Scheduled 02/14 at 38w2d. 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 Booster given at her 20 week visit Imagin10/06/24 (Level 2): EFW 66 percentile, AC 66 percentile. Posterior placenta, no previa, greater than 2 cm from internal os. Three-vessel cord with normal insertion. MVP 5.1 cm. No anomalies commonly detected by ultrasound were identified. Growth parameters in EFW were consistent with gestational age. Normal amniotic fluid. The cervix appeared long and closed. 12/10/24: cephalic, SDP 5.4, EFW 70.5%, AC 82.3%, all other growth parameters wnl 01/05/25: Vertex presentation, SDP: 6.3 cm, EFW: 2007 g, 40th percentile. AC: 46 percentile. Normal growth. 02/02/25: Cephalic, SDP 5.7, EFW 58.1%, AC 88.3%, All other growth parameters within normal ranges. Vaccinations: COVID: Declines Flu: 12/22/24 Tdap: 12/22/24 RSV: 01/05/25 32 week mental health: no concerns, phQ9 5, GAD7 1 Last pap: 01/17/22 OB - Problem Based A/P Additional Plan (1) Chronic hypertension affecting : Problem details: with history of gestational HTN Status: Acute (2) : Status: Acute Plan 1. IOL started with placement of cook catheter 50 mL on each balloon. Plan to start IV Oxytocin overnight as per protocol. 2. Continuous monitoring. 3. GBS Negative no need for antibiotic prophylaxis. 4. Pain management as needed, plans to get epidural. Will try IV Morphine or Vistaril overnight. 5. HELLP labs collected upon admission-normal. BPs elevated- I did recommend for us to start oral Nifedipine ER 30mg daily in the setting of CHTN and no other concern for severe hypertension features at the moment. OB Result Labs Labs: Normal platelets, normal BUN, creatinine and liver enzymes. 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
[2025-02-13 17:48] LABS: Hematocrit* 36.6 % (33.0-51.0); Hemoglobin* 11.9 gm/dL (12.0-16.0); Immature Granulocytes Pct Auto 0.7 %; Mean Corpuscular HGB Conc 33 gm/dL (32-36); Mean Corpuscular Hemoglobin 28 pg (26-34); Mean Corpuscular Volume 85 fL (80-100); RDW Coefficient of Variation % 14.1 % (11.5-15.5); Red Blood Count* 4.31 m/uL (4.00-5.20); White Blood Count* 15.20 K/uL (4.50-11.00)
[2025-02-13 17:51] LABS: Immature Granulocytes Abs Auto 0.10 K/uL (0.00-0.30); Lymphocytes Absolute Auto 2.80 K/uL (0.90-2.90); Slide Review Reflex No
[2025-02-13 18:06] LABS: Alanine Aminotransferase* 18 U/L (4-35); Aspartate Amino Transferase* 26 U/L (12-35); Blood Urea Nitrogen* 8 mg/dL (5-24); Creatinine* 0.7 mg/dL (0.5-1.5); Est. Creatinine Clearance* 102.40; Estimated Glomerular Filt Rate 120 ml/min
[2025-02-13] MEDS: ONDANSETRON 2 MG/ML inj 4 MG IV (18:41)
[2025-02-14] VITALS (129 sets, daily range): BP systolic 93–140; BP diastolic 55–85; PULSE 68–117; RESP 18; TEMP 36.7–37.4; O2SAT 88–100
[2025-02-14] MEDS: LACTATED RINGERS 1000 ML 1,000 ML 125 ML IV ×2 (00:20→07:46)
[2025-02-14] MEDS: OXYTOCIN 30 unit/500 ML in NS 30 UNIT/500 ML BAG IVPB (00:21)
--- NOTE | 2025-02-14 07:35 | PM.OBPNL ---
Subjective Date Seen: 02/14/25 Narrative: Joann is a 29 yo G2 P 0-1-0-1 woman at 38 2/7 weeks' gestation here for IOL for indication of chronic HTN in . She had elevated BPs at admit. HELLP labs were normal. She was started on nifedipine ER 30 mg daily last night. BPs have been normal since then. Cervical exam at admit was / -1. She had cook catheter placed overnight. She is currently on 4 mU/min of pitocin. Objective Exam: Gen - NAD Cervical exam per RN: 3 cm, 75% effaced,-1 station tracing: Baseline 135, accelerations present, no decelerations, moderate variability. Contractions infrequent at this time, about every 6-7 minutes. Vital Signs: Last Vital Signs Temp 98.2 F 02/14/25 00:32 Pulse 93 02/14/25 06:29 Resp 16 02/13/25 19:28 BP 110/70 02/14/25 06:29 Pulse Ox 98 02/14/25 06:10 Contractions Contraction intensity: Mild Assessment Station: -1 Heart Rate Baseline: 135 Monitor Accelerations: Present Monitor Decelerations: None Tracing Comments: Category I GBS negative Labor Progress: Latent labor, favorable cervix Maternal Status: Chronic HTN with gestational exacerbation. Currently well managed with nifedipine. Plan Plan: Continue Pitocin augmentation. AROM with regular contractions. Epidural as desired.
[2025-02-14] MEDS: ROPIVACAINE 0.2% 100 ml 100 ML 12 MG EPIDURAL (11:48)
[2025-02-14] MEDS: LIDOCAINE 2% (PF) 5 ML VIAL EPIDURAL ×2 (11:53→14:56)
--- NOTE | 2025-02-14 11:57 | PM.ANBPRC ---
[facility] Medical History (Updated 02/09/25 @ 10:13 by Linda Bentley MD) Bacterial vaginosis in ?O23.599 - Infection of other part of genital tract in , unspecified trimester (ICD-10) ?B96.89 - Other specified bacterial agents as the cause of diseases classified elsewhere (ICD-10) Fracture of fifth metatarsal bone of right foot ?S92.351A - Displaced fracture of fifth metatarsal bone, right foot, initial encounter for closed fracture (ICD-10) Pre-eclampsia affecting puerperium ?O14.95 - Unspecified pre-eclampsia, complicating the puerperium (ICD-10) (normal spontaneous vaginal delivery) ?O80 - Encounter for full-term uncomplicated delivery (ICD-10) Gestational hypertension ?O13.9 - Gestational [-induced] hypertension without significant proteinuria, unspecified trimester (ICD-10) Migraine with aura ?G43.109 - Migraine with aura, not intractable, without status migrainosus (ICD-10) History of menorrhagia ?Z87.42 - Personal history of other diseases of the female genital tract (ICD-10) History of abnormal cervical Papanicolaou smear (05/08/17) ?Z87.42 - Personal history of other diseases of the female genital tract (ICD-10) Surgical History History of wisdom tooth extraction ?K08.409 - Partial loss of teeth, unspecified cause, unspecified class (ICD-10) History of tonsillectomy (10/08/12) ?Z90.89 - Acquired absence of other organs (ICD-10) Family History Family/Other Coronary artery disease Family/Other Prostate cancer 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 . 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 What is your current living situation?: I presently have a place to live Problems where you live: no known problems In the past 12 months, utilities in danger of being shut off: no In past 12 months, lack of transportation kept you from medical appts, meetings, work, or getting things needed for daily living: no In the past 12 mos, have been you worried that your food would run out before you had money to buy more?: never true In the past 12 mos, the food you bought just didn't last and you didn't have money to buy more?: never true Smoking Status: Never smoker How often do you have a drink containing alcohol: 2-4 times a month How many standard drinks containing alcohol do you have on a typical day: 1 or 2 AUDIT-C Alcohol total score: 2 Non-prescribed substance use: denies use How often does anyone, including family, friends and others, physically hurt you: never How often does anyone, including family, friends and others, insult or talk down to you: never How often does anyone, including family, friends and others, threaten you with harm: never How often does anyone, including family, friends and others, scream or curse at you: never Meds Home Medications and Allergies Home Medications ?Medication ?Instructions ?Recorded ?Confirmed ?Type fluoxetine 40 mg capsule 40 mg PO QDAY #90 caps 05/24/24 02/13/25 Rx doxylamine succinate 25 mg tablet 25 mg PO QHS PRN 08/19/24 02/13/25 History (Unisom (doxylamine)) buspirone 5 mg tablet 5 mg PO BID #60 tabs 08/27/24 02/13/25 Rx aspirin 81 mg chewable tablet 81 mg PO QDAY 09/15/24 02/13/25 History fluoxetine 20 mg capsule 20 mg PO QDAY #90 caps 10/22/24 02/13/25 Rx famotidine 10 mg tablet (Pepcid AC) 10 mg PO QDAY 12/22/24 02/13/25 History Allergies Allergy/AdvReac Type Severity Reaction Status Date / Time human papillomavirus Allergy Severe Arm Went Verified 02/13/25 16:05 vaccine, quadr Black sumatriptan (From Imitrex) Allergy Intermediate Verified 02/13/25 16:05 Results Labs Labs: Laboratory Results - last 24 hr 02/13/25 17:40 WBC 15.20 H RBC 4.31 Hgb 11.9 L Hct 36.6 MCV 85 MCH 28 MCHC 33 RDW Coeff of Cinthya 14.1 Plt Count 258 Neut % (Auto) 74.9 H Lymph % (Auto) 18.5 L [place] % (Auto) 5.4 Eos % (Auto) 0.2 Baso % (Auto) 0.3 Neut # (Auto) 11.40 H Lymph # (Auto) 2.80 [place] # (Auto) 0.80 Eos # (Auto) 0.00 Baso # (Auto) 0.00 Abs Immat Gran (auto) 0.10 Imm/Tot Granulo (auto) 0.7 BUN 8 Creatinine 0.7 Estimated Creat Clear 102.40 Estimated GFR 120 AST 26 ALT 18 Syphilis IgG Antibody Non-Reactive Blood Type O Positive Antibody Screen NEGATIVE Vital Signs Vital Signs: Last Vital Signs Temp 98.1 F 02/14/25 09:37 Pulse 92 02/14/25 11:55 Resp 16 02/13/25 19:28 BP 119/69 02/14/25 11:55 Pulse Ox 98 02/14/25 11:55 Weight: 86.772 kg Height: 162.56 cm Anesthesia Procedures Epidural Insertion Patient Location: OB Start Time: 11:30 Stop Time: 12:00 Start Date: 02/14/25 Stop Date: 02/14/25 Reason for Block: primary anesthetic Patient Position: sitting Performed By: Ramy Velarde Preanesthetic Checklist: IV checked, risks and benefits discussed, surgical consent, monitors and equipment checked, pre-op evaluation, timeout performed and anesthesia consent Prep: chlorhexidine gluconate Monitoring: blood pressure monitoring, form grader 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
--- NOTE | 2025-02-14 12:33 | PM.OBPNL ---
Subjective Time Seen by Provider: 12:30 Date Seen: 02/14/25 Narrative: Joann is a 29 yo G2 P 0-1-0-1 woman at 38 2/7 weeks' gestation here for IOL for indication of chronic HTN in . She had elevated BPs at admit. HELLP labs were normal. She was started on nifedipine ER 30 mg daily last night. BPs have been normal since then. Cervical exam at admit was / -1. She had cook catheter placed overnight. She is currently on 10 mU/min of pitocin. She just had epidural for pain control. Redd catheter has been placed. She feels comfortable. Objective Exam: Gen - NAD SVE - / -1 SROM on exam with abundant clear fluid Vital Signs: Last Vital Signs Temp 98.1 F 02/14/25 09:37 Pulse 90 02/14/25 12:17 Resp 16 02/13/25 19:28 BP 110/70 02/14/25 12:17 Pulse Ox 98 02/14/25 11:55 Contractions Pitocin Rate (mU/min): 10 Assessment Assessment: early labor Station: -1 Amniotic Membrane Status: SROM Status: Category l Heart Rate Baseline: 135 Monitor Accelerations: Present Monitor Decelerations: None Tracing Comments: Category I GBS negative Labor Progress: Latent labor, progressing on Pitocin augmentation Maternal Status: Chronic HTN with gestational exacerbation. Currently well managed with nifedipine. Plan Plan: Continue Pitocin augmentation. Continuous EFM Anticipate
--- NOTE | 2025-02-14 17:04 | W.PM.VAGDEL1 ---
Procedure Delivery date: 02/14/25 Procedure Done: [employer] Procedure Details: The patient is a 29 year-old G 2 P 1 woman admitted on 02/13/2025 at 38 Weeks, 0 Days gestation for cervical ripening.? Cervical exam on admission was 1 cm/75 % effaced/-2 station with membranes intact in vertex presentation.? heart rate demonstrated a category 1 tracing.? She Cook catheter for cervical ripening overnight. Following morning, she had Pitocin for augmentation of labor. ? Labor Analgesia:? Epidural ? SROM occurred at time of exam hat 12:28 p.m. on 02/14/2025 with clear fluid. ? Labor onset:? Shortly after SROM ? Complete:? 4:10 p.m. ? Pushing:? 4:16 p.m. ? heart tones during second stage were reassuring. ? At 4:25 p.m. a viable male infant delivered in vertex NAOMY presentation over small first-degree perineal laceration via spontaneous vaginal delivery.? was placed on maternal abdomen.? Cord was clamped and cut after a 30-60 second delay.? Nose and mouth were bulb suctioned.? Infant weight pending.? 7 at 1 minute and 9 at 5 minutes.? Shoulder dystocia: No.? Nuchal cord: X2, reduced prior to delivery of the shoulder. ? Placenta delivered spontaneously and complete at 4:51 p.m. with a 3 vessel cord. ? Mother and were stable after delivery. ? Lacerations:? First-degree perineal laceration, repaired with 2 interrupted sutures of 3-0 Vicryl. ? Blood loss: 75 mL. Blood loss measurement type: EBL ? Sponge and needles counts are correct. Events: Gestational Hypertension Intrapartal Events: Labor Induction Delivery augmentation: rupture of membranes and pitocin Delivery monitor: external FHT Route of delivery: Laceration description: Perineal - 1st Degree Delivery repair: Vicryl Estimated blood loss (mL): 75 Anesthesia type: Epidural
[2025-02-14] MEDS: IBUPROFEN 600 MG TABLET PO (19:37)
[2025-02-14] MEDS: BUSPIRONE 10 MG TABLET 5 MG PO (21:28)
[2025-02-15] VITALS (7 sets, daily range): BP systolic 96–118; BP diastolic 59–77; PULSE 70–85; RESP 14–18; TEMP 36.3–36.6; O2SAT 96–98
[2025-02-15 06:28] LABS: Hematocrit* 31.5 % (33.0-51.0); Hemoglobin* 10.2 gm/dL (12.0-16.0); Immature Granulocytes Pct Auto 0.7 %; Mean Corpuscular HGB Conc 32 gm/dL (32-36); Mean Corpuscular Hemoglobin 28 pg (26-34); Mean Corpuscular Volume 86 fL (80-100); RDW Coefficient of Variation % 14.1 % (11.5-15.5); Red Blood Count* 3.68 m/uL (4.00-5.20); White Blood Count* 16.75 K/uL (4.50-11.00)
[2025-02-15 06:29] LABS: Immature Granulocytes Abs Auto 0.10 K/uL (0.00-0.30); Lymphocytes Absolute Auto 2.90 K/uL (0.90-2.90); Slide Review Reflex No
[2025-02-15 06:45] LABS: Alanine Aminotransferase* 12 U/L (4-35); Aspartate Amino Transferase* 36 U/L (12-35); Blood Urea Nitrogen* 8 mg/dL (5-24); Creatinine* 0.6 mg/dL (0.5-1.5); Est. Creatinine Clearance* 119.47; Estimated Glomerular Filt Rate 125 ml/min
--- NOTE | 2025-02-15 07:55 | P.OBPN_ITS ---
OB - PN:Subj Subjective Date Seen: 02/15/25 Narrative: Joann is a 29 year old who was admitted for IOL for chronic HTN and proceeded to have a vaginal with a 1st degree laceration that was repaired. She had some mild elevations of BP on admit. She is now normo or hypotensive and not currently taking any HTN medication. The patient feels well.? The pain is well controlled with current medications.? She has no new complaints.? Urinary output is adequate and she is voiding without difficulty.? Has a good appetite, is tolerating a general diet, is passing flatus, and has had a bowel movement.? Has scant amount of rubra lochia but did note an increase when up for the first time this morning.? She is ambulating well. She is bottlefeeding and reports it is going well.? OB - PN: Obj Exam Physical Exam: Vital signs: Temp Pulse Resp BP Pulse Ox O2 Del Method 97.7 F 77 14 96/59 L 97 Room Air 02/15/25 00:07 02/15/25 04:00 02/15/25 04:00 02/15/25 04:00 02/15/25 04:00 02/15/25 04:00 Narrative: GENERAL APPEARANCE:? normal affect, alert, no distress MOOD:? appropriate CHEST:? clear to auscultation HEART:? regular rate and rhythm ABDOMEN:? soft, non-tender the uterine fundus is finger breadth below the Umbilicus, Midline and is appropriate for the stage of recovery. PERINEUM:? mild edema of the perineum, there is a Perineal Laceration,? with no concerning erythema or abnnormal discharge EXTREMITIES:? normal and mild edema OB - PN: Obj Data Labs Labs: Laboratory Results - last 24 hr 02/15/25 06:00 WBC 16.75 H RBC 3.68 L Hgb 10.2 L Hct 31.5 L MCV 86 MCH 28 MCHC 32 RDW Coeff of Cinthya 14.1 Plt Count 206 Neut % (Auto) 72.5 H Lymph % (Auto) 17.1 L [place] % (Auto) 9.1 Eos % (Auto) 0.4 Baso % (Auto) 0.2 Neut # (Auto) 12.10 H Lymph # (Auto) 2.90 [place] # (Auto) 1.50 H Eos # (Auto) 0.10 Baso # (Auto) 0.00 Abs Immat Gran (auto) 0.10 Imm/Tot Granulo (auto) 0.7 BUN 8 Creatinine 0.6 Estimated Creat Clear 119.47 Estimated GFR 125 AST 36 H ALT 12 OB - PN: A/P Delivery Assessment and Plan (1) Chronic hypertension affecting : Problem details: with history of gestational HTN Status: Acute (2) care and examination: Status: Acute (3) (normal spontaneous vaginal delivery): Problem details: x2 Status: Acute Plan Comments: PP day #1 Routine care Continue to monitor BP Anticipate discharge 02/16/2025
[2025-02-15] MEDS: BUSPIRONE 10 MG TABLET 5 MG PO ×2 (08:41→22:27)
[2025-02-15] MEDS: IBUPROFEN 600 MG TABLET PO ×2 (08:41→15:59)
[2025-02-15] MEDS: DOCUSATE SODIUM 100 MG CAPSULE PO (08:41)
[2025-02-15] MEDS: FLUOXETINE HCL 20 MG CAPSULE 60 MG PO (08:42)
--- NOTE | 2025-02-15 10:01 | PM.ANPOST ---
Post Anesthesia Note Post Anesthesia Note Patient seen: Inpatient Respiratory Status: adequate Cardiovascular Status: adequate Mental Status: baseline Pain: adequate Temp: baseline Anesthetic awareness: N/A Complications: none Follow care: none
[2025-02-15] MEDS: ACETAMINOPHEN 500 MG TABLET 1000 MG PO (13:00)
[2025-02-16 00:14] VITALS: BP 118/81; PULSE 75; RESP 16; O2SAT 98
[2025-02-16 06:07] VITALS: BP 133/84; PULSE 71; RESP 18; O2SAT 98
[2025-02-16] MEDS: IBUPROFEN 600 MG TABLET PO (06:12)
[2025-02-16] MEDS: DOCUSATE SODIUM 100 MG CAPSULE PO (08:09)
[2025-02-16 08:10] VITALS: BP 129/85; PULSE 75; RESP 16; TEMP 36.8; O2SAT 97
[2025-02-16] MEDS: FLUOXETINE HCL 20 MG CAPSULE 60 MG PO (08:10)
[2025-02-16] MEDS: BUSPIRONE 10 MG TABLET 5 MG PO (08:10)
--- NOTE | 2025-02-16 08:47 | P.DS_ITS ---
DS: Providers Provider Date Seen: 02/16/25 Date of admission: 02/13/25 15:49 Primary care physician: Sagar Ruelas MD Admitting Clinician: Mikala Cummings MD Attending Physician on discharge: Louise Miles APRN, CNM DS: Diagnosis Discharge Diagnosis (1) care and examination: Status: Acute (2) Chronic hypertension affecting : Status: Acute Problem details: with history of gestational HTN (3) Lactating mother: Status: Acute (4) SARATH (generalized anxiety disorder): Status: Acute Exam Narrative: Exam Narrative: GENERAL APPEARANCE:? normal affect, alert, no distress MOOD:? appropriate CHEST:? clear to auscultation HEART:? regular rate and rhythm ABDOMEN:? soft, non-tender the uterine fundus is cm At Umbilicus, Midline and is appropriate for the stage of recovery. PERINEUM:? mild edema of the perineum, there is a Perineal Laceration,?1st degree, that is healing well. EXTREMITIES:? normal and no edema Const: Vital Signs, click to edit/add: Vital Signs - 24 hr 02/15/25 12:50 02/15/25 16:04 02/15/25 17:48 Temperature 97.7 F 97.9 F Pulse Rate [Pulse Oximeter] 70 70 Respiratory Rate 16 16 Blood Pressure [Le ft Arm] 107/67 116/77 110/74 Pulse Oximetry 97 98 Oxygen Delivery Me thod Room Air Room Air 02/15/25 19:58 02/16/25 00:14 02/16/25 06:07 Temperature 97.8 F Pulse Rate [Pulse Oximeter] 77 75 71 Respiratory Rate 16 16 18 Blood Pressure [Le ft Arm] 118/76 118/81 133/84 Pulse Oximetry 96 98 98 Oxygen Delivery Me thod Room Air Room Air Room Air 02/16/25 08:10 Temperature 98.3 F Pulse Rate [Pulse Oximeter] 75 Respiratory Rate 16 Blood Pressure [Le ft Arm] 129/85 Pulse Oximetry 97 Oxygen Delivery Me thod Room Air Documenting provider has reviewed patient's vital signs: yes OB - DS: Summary Hospital Course Hospital Course: Joann is a 29 y.o. G 2 P 2 who was admitted to [facility] for induction of labor chronic HTN. ?She had a NVD that was uncomplicated. The patient feels well. ?The pain is well controlled with current medications. ?She has no new complaints. ?She is breast feeding and reports things are going well. the patient has done well.? Vitals have been stable.?Her BP was mildly elevated and she was started on oral nifedipine. This was held last night. She will resume daily nifedipine today this morning. This was reviewed with OB litigation secretary. She has remained afebrile.? Has a good appetite, is tolerating a general diet. ?She is voiding without difficulty.? She is passing gas and has not had a bowel movement.? She is ambulating and denies any dizziness.? Has small amount of rubra lochia. She is planning copper IUD for prevention. Problems: CHTN, medications started Discharge home with baby.? Follow up in 2 weeks and 6 weeks.? , may see if needed? Hgb 10.2. ? CHTN with elevated BP , Medications started? Labs WNL or stable with trending? Discharge home with BP cuff if does not already have one? Follow up in 3-5 days? Call for signs/symptoms of preeclampsia? For pain control of perineum, breast and pelvic pain, take 600 mg Ibuprofen every 6 hours as needed by mouth or 1000 mg acetaminophen (Tylenol) every 6 hours by mouth as needed. You can alternate these so you are taking something e very 3 hours as needed. A heating pad can also be used for your abdomen or breasts. You may also take docusate sodium up to twice daily to soften your stools and help to prevent constipation. You may wean off of it when your stools return to normal.? Peripartum Data delivery method: Vaginal Laceration description: Perineal - 1st Degree complications: none Infant Gender: Male Infant Discharge Plan: Home Status at Discharge Functional status at discharge: independent ambulation Overall status at discharge: patient is progressing back to baseline Time Spent with Patient Time attestation: Total time spent providing and/or coordinating discharge services: Time spent: Less than 30 minutes Discharge Plan Discharge Disposition: Home, Self-Care Date of Admission: 02/13/25 15:49 Attending Provider on Discharge: Louise Miles Consulting Providers: Rody Wagoner Primary Care Provider: Sagar Ruelas Condition: Stable Anticipated Discharge Date/Time: 02/16/25 12:00 Discharge Medications: New acetaminophen 500 mg Tablet 1,000 mg PO Q6H PRNQty: 0 0RF docusate sodium 100 mg Capsule 100 mg PO DAILY Qty: 60 0RF ibuprofen 600 mg Tablet 600 mg PO Q6H PRNQty: 60 0RF nifedipine 30 mg Tablet Extended Release 30 mg PO DAILY Qty: 60 0RF Continued fluoxetine 40 mg capsule 40 mg PO QDAY Qty: 90 1RF famotidine [Pepcid AC] 10 mg tablet 10 mg PO QDAY Unisom (doxylamine) 25 mg tablet 25 mg PO QHS PRN buspirone 5 mg tablet 5 mg PO BID Qty: 60 6RF fluoxetine 20 mg capsule 20 mg PO QDAY Qty: 90 1RF Rx Instructions: Total daily dose is 60 mg QD Discontinued aspirin 81 mg tablet,chewable 81 mg PO QDAY Discharge Orders: Discharge Order (Routine); Ordered 02/16/25 Ordered By: Louise Miles Patient Education: OB Over the Counter Medication Information, OB Vaginal/Breast Feeding Additional Instructions: Discharge instructions were reviewed with the patient including signs and symptoms of infection and home going medications Nothing vaginally for 6 weeks: no tampons or intercourse Off Work or School for 6 weeks [facility] for [facility] BP check?3-5 days * Call with BP greater than or equal to 160/110 * Hold medication if less than 100/60, call clinic with any symptoms of lightheadedness or dizziness with taking o * Severe headache that doesn't improve after taking medications * Changes in vision, including temporary loss of vision, blurred vision, and/or light sensitivity * Upper abdominal pain (usually under ribs on the right side) 2-week visit: discuss infant feeding concerns, review control options and screen for anxiety/depression. 6-week visit for an annual exam. consultation services are available to all mothers and babies for the first year after delivery.? To make an appointment, please call [phone]. Activity Level: Activity as Tolerated Discharge Diet: Regular Follow Up Appointments: [facility] [Provider Group] Forms: [employer] Info Instructions
== END 2025-02-16 11:18 | disposition home or self-care (01) | DRG 807 ==
PROVIDERS: Obstetrics & Gynecology; Admitting Provider Family Medicine; PCP Family Medicine; Visit Provider Obstetrics & Gynecology
DX: O10.92 Unspecified pre-existing hypertension complicating childbirth (principal); Z37.0 Single live birth; O70.0 First degree perineal laceration during delivery; O99.344 Other mental disorders complicating childbirth; F32.A Depression, unspecified; O99.214 Obesity complicating childbirth; E66.9 Obesity, unspecified; F41.1 Generalized anxiety disorder; Z3A.38 38 weeks gestation of pregnancy
CPT/HCPCS: 01967; 36415; 59200; 82565; 84450; 84460; 84520; 85025; 86780; 86850; 86900; 86901; A9270; C1726; J2270; J2405; J2795; J3010; J7120

== ENCOUNTER 2025-02-25 08:40 | Outpatient (CLI) | payer OTHER, SELFPAY ==
--- NOTE | 2025-02-25 10:00 | CRLHL7_ITS ---
For Patients: As a result of the Century Cures Act, medical imaging exams and procedure reports are released immediately into your electronic medical record. You may view this report before your referring provider. If you have questions, please contact your health care provider. CLINICAL HISTORY: Other immediate hemorrhage COMPARISON: 07/19/2024 TECHNIQUE: 2D singletary-scale and color Doppler images were acquired of the pelvis using a transvaginal approach. FINDINGS: There is indistinctness of the posterior endometrium with some lobular contour on the cine clip. A small amount of endometrial fluid is noted. The endometrial thickness is 4 millimeters. The color flow is not particularly increased regarding the posterior endometrium. No uterine fibroid is present. The uterus measures 12.5 x 6.0 x 7.6 cm. The left ovary measures 3.9 x 2.1 x 1.9 cm in size and the right ovary measures 3.0 x 1.8 x 1.8 cm. The ovaries demonstrate normal arterial and venous blood flow on color Doppler analysis. There are no suspicious fluid collections within the cul-de-sac. IMPRESSION: The posterior endometrium is ill-defined and somewhat lobular with associated endometrial fluid. Although the color flow is not particularly increased, this is concerning for retained products in the setting of continued bleeding. No AV fistula. Dictated by Sagar Ramirez MD @ 02/25/2025 9:50:36 AM (Electronically Signed)
== END 2025-02-25 08:41 | disposition home or self-care (01) ==
LOC: US 08:41
PROVIDERS: PCP Family Medicine; Visit Provider Physician Assistant
DX: O72.1 Other immediate postpartum hemorrhage (principal); N85.8 Other specified noninflammatory disorders of uterus
CPT/HCPCS: 76830